=== PATIENT | female | born 1960 | race Caucasian/White ===

== ENCOUNTER 2020-10-31 20:20 | Inpatient (IN) | payer OTHER, SELFPAY ==
[2020-10-31] VITALS (22 sets, daily range): BP systolic 103–135; BP diastolic 62–94; PULSE 97–113; RESP 15–28; TEMP 37.4; O2SAT 86–99
--- NOTE | ~2020-10-31 | XR_ITS ---
EXAMINATION: XR chest 1V portable EXAM DATE: 11/07/2020 00:23 INDICATION: COVID, hypoxic respiratory failure TECHNIQUE: Portable AP frontal chest x-ray was obtained. Comparison is made to prior examination from 10/31/2019. FINDINGS: There is moderate amount of bilateral mid and lower lung zone acute airspace disease, may h ave slight progression on the left side compared to prior study. Likely COVID pneumonia given history provided. No pneumothorax or pleural effusion. Cardiomediastinal silhouette is normal. Right rotator cuff calci fic tendinosis. Possible cholecystectomy clips. Mild thoracic scoliosis and mild to moderate spondylo sis. IMPRESSION: 1. Bilateral acute airspace disease, probable slight progression on the left. Reviewed, dictated and finalized at location A. T DESK LEAD
--- NOTE | ~2020-10-31 | XR_ITS ---
EXAMINATION: XR chest 1V portable EXAM DATE: 11/08/2020 10:26 INDICATION: shortness of breath, COVID-19. TECHNIQUE: Portable AP frontal chest x-ray was obtained. Comparison is made to prior examination from 11/07/2020. FINDINGS: There is moderate amount of bilateral mid and lower lung zone acute airspace disease unchan ged. Likely COVID pneumonia given history provided. No pneumothorax or pleural effusion. Cardiomediastinal silhouette is normal. Right rotator cuff calci fic tendinosis. Possible cholecystectomy clips. Mild thoracic scoliosis and mild to moderate spondylo sis. IMPRESSION: Moderate amount of bilateral acute airspace disease unchanged. Reviewed, dictated and finalized at location A. ERAGE PURCHASE AND SALE CLERK
--- NOTE | ~2020-10-31 | US_ITS ---
EXAMINATION: US abdomen limited DATE: 11/03/2020 10:22 INDICATION: Abnormal liver function tests. TECHNIQUE: Multiple grayscale and Doppler ultrasound images of the abdomen were obtained. COMPARISON: Chest CT 10/31/2020 FINDINGS: The visualized portions of the head and body of the pancreas are normal. The liver is doroteo l without focal lesion. No liver surface nodularity. There is normal flow in main portal vein. The ga llbladder is absent. The common duct is normal and measures 5 mm. IMPRESSION: 1. Normal right upper quadrant ultrasound status post cholecystectomy. Reviewed, dictated and finalized at location A. P TRUCK DRIVER
--- NOTE | ~2020-10-31 | CT_ITS ---
EXAMINATION: CTA chest PE protocol DATE: 10/31/2020 23:57 INDICATION: Shortness of breath TECHNIQUE: Computed tomography angiography (CTA) of the chest was performed with 100 mL Omnipaque-350 intravenous contrast timed to evaluate the pulmonary arteries. Coronal maximum intensity projection 3D-reconstructions were created by the technologist. Automated exposure control and iterative reconst ruction technique were employed. Exam dose: 214.69 mGy-cm total exam DLP. COMPARISON: October 31, 2020 portable AP chest FINDINGS: There is diagnostic contrast enhancement of the pulmonary arteries and no evidence of pulmo nary embolism. No thoracic aortic aneurysm or dissection. Normal heart size. No pericardial or pleural effusion. There are extensive bilateral pulmonary infiltrates involving right upper, middle lobe is mildly more prominent involvement of the left upper lobe and lingula and particularly the dependent lower lobes. Findings are consistent with extensive bilateral pneumonia or aspiration pneumonitis. Normal morphology of the adrenal glands. Status post cholecystectomy. Diffuse hepatic steatosis. There are 2 up to 1.3 cm posterior right hepatic probable cysts. 4.5 mm upper pole nonobstructing left renal calculus. IMPRESSION: No evidence of pulmonary embolism Extensive bilateral pulmonary infiltrates; diffusion diagnosis includes bilateral pneumonia, aspirati on pneumonitis Status post cholecystectomy Diffuse hepatic steatosis Probable hepatic cysts 4.5 mm upper pole nonobstructing left renal calculus Reviewed, dictated and finalized at Location A. Reviewed, dictated and finalized at location A. TICS FABRICATOR OR WELDER IMPRESSION: No evidence of pulmonary embolism Extensive bilateral pulmonary infiltrates; diffusion diagnosis includes bilater al pneumonia, aspiration pneumonitis Status post cholecystectomy Diffuse hepatic steatosis Probable hepatic cysts 4.5 mm upper pole nonobstructing left renal calculus
--- NOTE | ~2020-10-31 | US_ITS ---
EXAMINATION: US venous doppler [facility] DATE: 11/01/2020 10:10 INDICATION: Shortness of breath. TECHNIQUE: Grayscale ultrasound images without and with compression and Doppler ultrasound images of the bilateral lower extremity veins were obtained. COMPARISON: Ultrasound 04/18/2017 FINDINGS: The visualized portions of right common femoral vein, profunda (deep) femoral vein, femoral vein, pop liteal vein, peroneal veins, posterior tibial veins, and greater saphenous vein outflow are patent. The visualized portions of left common femoral vein, profunda femoral vein, femoral vein, popliteal v ein, peroneal veins, posterior tibial veins, and greater saphenous vein outflow are patent. IMPRESSION: 1. No deep venous thrombosis. Reviewed, dictated and finalized at location A. GER TECHNICAL SALES
--- NOTE | ~2020-10-31 | XR_ITS ---
EXAMINATION: XR chest 1V portable DATE: 10/31/2020 20:54 INDICATION: Shortness of breath. Cough. TECHNIQUE: A single frontal view of the chest was obtained. COMPARISON: Chest 2 views 06/29/2015 FINDINGS: There are patchy airspace opacities in the mid and lower lung zones. No pleural effusion or pneumothorax. The heart size is normal. Surgical clips in the right upper quadrant are likely from c holecystectomy. IMPRESSION: 1. Patchy airspace opacities in the mid and lower lung zones, consistent with pneumonia. Reviewed, dictated and finalized at location A. MAKER IMPRESSION: 1. Patchy airspace opacities in the mid and lower lung zones, consistent with p neumonia.
--- NOTE | 2020-10-31 20:48 | ECG_ITS ---
Measurements Intervals [place] Rate: 103 P: 31 GA: 155 QRS: -5 QRSD: 77 T: 14 QT: 303 QTc: 398 Interpretive Statements SINUS TACHYCARDIA LOW QRS VOLTAGE IN PRECORDIAL LEADS BORDERLINE T WAVE ABNORMALITY- INFERIOR LEADS BASELINE ARTIFACT- I, II, III, AVL, AVF, V4 BORDERLINE ECG Electronically Signed On 11-01-2020 12:37:26 CLINICAL OB by Estevan Spears D.O.
[2020-10-31] MEDS: SODIUM CHLORIDE 0.9% IV 1,000 ML 999 ML IV CONT (21:10)
[2020-10-31 21:14] LABS: Hematocrit 42.2 % (37.0-47.0); Hemoglobin 15.3 g/dL (12.0-15.0); Immature Granulocyte Absolute 0.02 K/mm3 (0.00-0.031); Immature Granulocyte Percent A 0.6 % (0-0.5); Lymphocytes Absolute Auto 0.86 K/mm3 (0.9-3.2); Lymphocytes Percent Auto 27.6 % (18.3-44.2); Mean Corpuscular HGB Conc 36.3 g/dl (32-36); Mean Corpuscular Hemoglobin 29.7 pg (26-34); Mean Corpuscular Volume 81.8 fl (80-100); Mean Platelet Volume 9.3 fl (7.4-10.4); Monocytes Absolute Auto 0.1 K/mm3 (0.1-0.6); Monocytes Percent Auto 4.2 % (2.6-8.5); Neutrophils Absolute Auto 2.1 K/mm3 (1.3-6.7); Neutrophils Percent Auto 67.6 % (45.5-73.1); Platelet Count Result 225 k/mm3 (150-375); Red Blood Count 5.16 M/mm3 (4.2-5.4); Red Cell Distribution Width 11.4 % (11.5-14.5); White Blood Count 3.1 K/mm3 (4.5-10.0)
[2020-10-31 21:20] LABS: Hypochromasia 2+ (NORMAL); Platelet Estimate Adequate (Adequate)
[2020-10-31 21:24] LABS: Lactic Acid Reflex 1.5 mmol/L (0.7-2.1)
[2020-10-31 21:27] LABS: Alanine Aminotransferase 49 U/L (4-35); Albumin Level 3.6 g/dL (3.5-5.1); Alkaline Phosphatase 99 U/L (38-126); Anion Gap 7 mmol/L (8-16); Aspartate Amino Transferase 59 U/L (14-36); Bilirubin,Total 0.6 mg/dL (0.2-1.3); Blood Urea Nitrogen 9 mg/dL (7-17); CRP 6.7 mg/dL (<1.0); Calcium 8.4 mg/dL (8.4-10.2); Carbon Dioxide 31 mmol/L (22-30); Chloride 94 mmol/L (98-107); Estimated Glomerular Filt Rate > 60; Glucose 110 mg/dL (65-105); Potassium 3.3 mmol/L (3.4-5.0); Sodium 132 mmol/L (137-145)
[2020-10-31 21:33] LABS: NT Pro B Type Natriuretic Pept 29 PG/ML (5-100)
[2020-10-31] MEDS: DEXAMETHASONE SOD PHOS INJ 4 MG/ML VIAL 6 MG IV PUSH (21:37)
--- NOTE | 2020-10-31 22:10 | ED.GENADULT ---
HPI - General Adult General Chief complaint: Weakness Stated complaint: sick for 12 days Time Seen by Provider: 10/31/20 20:29 History of Present Illness HPI narrative: Patient is a 59-year-old female who presents to the ER with reports of weakness. Ongoing for 12 days. Associated with nonproductive cough shortness of breath. She also has been having persistent diarrhea but no nausea vomiting or abdominal pain. No known sick contacts. No known Covid contacts. Related Data Allergies Allergy/AdvReac Type Severity Reaction Status Date / Time chlordiazepoxide Allergy Unknown Verified 03/08/17 01:13 codeine Allergy Unknown Verified 02/01/12 12:33 erythromycin base Allergy Unknown Verified 02/01/12 12:33 metronidazole Allergy Unknown Verified 03/08/17 01:13 Penicillins Allergy Unknown Verified 02/01/12 12:26 Review of Systems Review of Systems: All systems reviewed & are unremarkable except as noted in HPI and below Constitutional: Constitutional: Reports chills, Reports fatigue, Reports fever(s) and Reports weakness ENT: Denies nasal congestion and Denies sore throat Cardiovascular: Cardiovascular: Denies chest pain, Denies rapid heart rate and Denies radiating jaw, neck or arm pain Respiratory: Respiratory: Reports cough, Reports dyspnea and Denies wheezing Gastrointestinal: Gastrointestinal: Denies abdominal pain, Reports diarrhea, Denies nausea and Denies vomiting PMFSH Past Medical History Medical History (Updated 10/31/20 @ 23:40 by Hank Jacobs MD) Healthy female adult Surgical History Surgical History (Updated 10/31/20 @ 23:38 by Hank Jacobs MD) History of cholecystectomy Family History Family History (Updated 05/01/14 @ 07:13 by DOCTOR UNKNOWN) Mother Hypertension Father Family history of hearing loss Other Diabetes mellitus Family history of cardiovascular disease Social History Social History Smoking status: Never smoker Exam Narrative: Exam Narrative: GENERAL: Fatigued-appearing, well-nourished, and in no acute distress. HEAD: Normocephalic, atraumatic. CHEST: Rales bilateral bases, no wheezing. No respiratory distress. HEART: Regular rate and rhythm. Normal peripheral pulses. ABDOMEN: Soft, nontender, nondistended. EXTREMITIES: Normal range of motion. No edema. SKIN: Warm, dry, no rash. NEURO: Alert and oriented x3. PSYCH: Normal mood and affect. Course Course Emergency Course: Patient informed results. Because she is a PUI she will be started on IV antibiotics for her pneumonia though is likely Covid. Patient has been given Decadron. Discussed with hospitalist service to request CTA to rule out PE. Vital Signs Vital signs: Vital Signs Temperature 99.4 F 10/31/20 20:30 Pulse Rate 110 H 10/31/20 20:30 Respiratory Rate 28 H 10/31/20 20:30 Blood Pressure 135/94 H 10/31/20 20:30 Pulse Oximetry 86 L 10/31/20 20:30 Temperature 99.4 F 10/31/20 20:30 Pulse Rate 100 10/31/20 23:31 Respiratory Rate 28 H 10/31/20 23:31 Blood Pressure 107/69 10/31/20 23:30 Pulse Oximetry 95 10/31/20 23:31 Medical Decision Making Vital Signs Vital Signs: Vital Signs Temperature 99.4 F 10/31/20 20:30 Pulse Rate 110 H 10/31/20 20:30 Respiratory Rate 28 H 10/31/20 20:30 Blood Pressure 135/94 H 10/31/20 20:30 Pulse Oximetry 86 L 10/31/20 20:30 Temperature 99.4 F 10/31/20 20:30 Pulse Rate 100 10/31/20 23:31 Respiratory Rate 28 H 10/31/20 23:31 Blood Pressure 107/69 10/31/20 23:30 Pulse Oximetry 95 10/31/20 23:31 Lab Data Result diagrams: 10/31/20 21:02 10/31/20 21:02 Labs: Lab Results 10/31/20 10/31/20 10/31/20 Range/Units 21:02 21:02 21:02 WBC 3.1 L (4.5-10.0) K/mm3 RBC 5.16 (4.2-5.4) M/mm3 Hgb 15.3 H (12.0-15.0) g/dL Hct 42.2 (37.0-47.0) % MCV 81.8 (80-100) fl MCH 29.7 (26-34) pg MCHC 36.3 H (32-36) g/dl RDW 11.4 L (11.5-
--- NOTE | 2020-10-31 23:37 | PM.IMHP ---
H&P: HPI History of Present Illness Date/Time: 10/31/20 23:37 Chief Complaint: Dyspnea Narrative: Elyse Eagle is a 59 year old female Who has been sick for at least 12 days. She lives with her who was also sick but he is getting better. The patient has had a cough, fever, chills, nausea, vomiting, diarrhea and body aches. The patient has taken Tylenol at home but has not helped. The patient feels like she is getting worse instead of better. She feels short of breath today. She is not aware being exposed to COVID but her has been sick and he has not been tested for COVID. Chest x-ray was read as patchy airspace opacities mid and lower lung, with pneumonia. The patient was placed on 1 L per nasal cannula of oxygen. She is not typically on oxygen at home. She does not smoke or have any Chronic respiratory diseases. white count is 3 point on. The patient stated that she has lost her sense of taste and has lost her appetite. She says nothing tastes good and has not been eating very much recently. She was given a L IV fluids in the emergency room. She was started on Levaquin. She was started on Decadron in the emergency room. Her blood pressure is on the low side 107/69. Respiratory rate is 28. the lowest pulse ox reading that was recorded from the emergency room was listed as 86%. Patient's D-dimer was 1.4. Potassium 3.3. Potassium supplement was ordered. CT a pulmonary was ordered as well due to the elevated D-dimer. Patient is being admitted to inpatient on the date of service of 10/31/2020. Review of Systems Review of Systems: All systems reviewed & are unremarkable except as noted in HPI and below Constitutional: Constitutional: Reports as per HPI and Reports no additional constitutional complaints Eyes: Eyes: Reports as per HPI and Reports no additional eye complaints ENT: Reports system reviewed and no additional complaints, except as documented and Reports Normal hearing present Cardiovascular: Cardiovascular: Reports no additional cardiovascular complaints Respiratory: Respiratory: Reports no additional respiratory complaints and Reports no additional respiratory complaints Gastrointestinal: Gastrointestinal: Reports as per HPI and Reports no additional gastrointestinal complaints Musculoskeletal: Musculoskeletal: Reports no additional musculoskeletal complaints Integumentary/Breasts: Skin/Breast: Reports system reviewed and no additional complaints, except as docu and Reports as per HPI Neurologic: Reports system reviewed and no additional complaints, except as documented, Reports as per HPI and Reports Normal hearing present Psychiatric: Psychiatric: Reports no additional psychiatric complaints and Reports as per HPI Endocrine: Endocrine: Reports no additional endocrine complaints Hematologic/Lymphatic: Hematologic/Lymphatic: Reports no additional hematologic/lymphatic complaints Allergic/Immunologic: Allergic/Immunologic: Reports no additional allergic/immunologic complaints [facility] Past Medical History Medical History (Updated 10/31/20 @ 23:50 by Ondina Mcelroy NP) Healthy female adult Surgical History Surgical History History of cholecystectomy Family History Family History (Updated 10/31/20 @ 23:53 by Ondina Mcelroy NP) Mother Hypertension COPD (chronic obstructive pulmonary disease) Father Family history of hearing loss Malignant neoplasm of prostate Other Diabetes mellitus Family history of cardiovascular disease Social History Social History (Updated 10/31/20 @ 23:54 by Ondina Mcelroy NP) Social History: 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 The patient desires to be a full code. She has 4 children. She is a lifelong nonsmoker. She does not use any marijuana alcohol or illicit drugs. Smoking status: Never smoker
[2020-11-01] VITALS (7 sets, daily range): BP systolic 102–111; BP diastolic 59–66; PULSE 88–114; RESP 16–20; TEMP 36–36.9; O2SAT 91–94; BMI 27.6
--- NOTE | 2020-11-01 00:49 | PC.NURSE ---
This patient, Elyse Eagle, was admitted to [facility] Surg Room 306-01. Patient/family oriented to hospital policies and general routines including ID bracelet, bed and alarms, visiting hours, pain management, procedures, bathroom and other care routines, personal items, smoking policy, room service/diet, and visiting hours. Information on how to activate the Rapid Response Team has been discussed. Patient/Family are encouraged to report perceived risks to care and to ask questions if they do not understand what they are told or what they should do.
[2020-11-01] MEDS: POTASSIUM CHLORIDE 20 MEQ PACKET (FOR LIQUID) PO (01:06)
[2020-11-01 09:17] LABS: Hematocrit 39.7 % (37.0-47.0); Hemoglobin 14.3 g/dL (12.0-15.0); Immature Granulocyte Absolute 0.01 K/mm3 (0.00-0.031); Immature Granulocyte Percent A 0.5 % (0-0.5); Lymphocytes Absolute Auto 0.53 K/mm3 (0.9-3.2); Lymphocytes Percent Auto 28.6 % (18.3-44.2); Mean Corpuscular Hemoglobin 29.7 pg (26-34); Mean Corpuscular Volume 82.4 fl (80-100); Mean Platelet Volume 9.1 fl (7.4-10.4); Monocytes Absolute Auto 0.1 K/mm3 (0.1-0.6); Monocytes Percent Auto 5.9 % (2.6-8.5); Neutrophils Absolute Auto 1.2 K/mm3 (1.3-6.7); Platelet Count Result 225 k/mm3 (150-375); Red Blood Count 4.82 M/mm3 (4.2-5.4); Red Cell Distribution Width 11.5 % (11.5-14.5)
[2020-11-01 09:19] LABS: White Blood Count 1.9 K/mm3 (4.5-10.0)
[2020-11-01] MEDS: ENOXAPARIN 40 MG/0.4 ML SYRINGE SUB-Q ×2 (10:07→20:59)
[2020-11-01] MEDS: DEXAMETHASONE SOD PHOS INJ 4 MG/ML VIAL 6 MG IV PUSH (10:07)
[2020-11-01 10:24] LABS: Alanine Aminotransferase 50 U/L (4-35); Albumin Level 3.3 g/dL (3.5-5.1); Alkaline Phosphatase 85 U/L (38-126); Anion Gap 3 mmol/L (8-16); Aspartate Amino Transferase 54 U/L (14-36); Bilirubin,Total 0.4 mg/dL (0.2-1.3); Blood Urea Nitrogen 8 mg/dL (7-17); CRP 6.7 mg/dL (<1.0); Calcium 8.6 mg/dL (8.4-10.2); Carbon Dioxide 31 mmol/L (22-30); Chloride 102 mmol/L (98-107); Estimated CRCL calculation 89 ml/min; Estimated Glomerular Filt Rate > 60; Glucose 132 mg/dL (65-105); Potassium 4.2 mmol/L (3.4-5.0); Sodium 136 mmol/L (137-145)
--- NOTE | 2020-11-01 14:24 | PM.IMPN ---
Progress Note: A&P Assessment and Plan (1) Person under investigation for COVID-19: Code(s): Z20.822 - Contact with and (suspected) exposure to COVID-19 Status: Acute Assessment and Plan: patient was started on Decadron. She was started on Levaquin as well for possibility of community-acquired pneumonia. Continue with inhaler. Incentive spirometer. CRP was elevated liver enzymes are elevated. D-dimer is elevated. 11/01/20 14:24 patient is a 59-year-old female presented to emergency department with a complaint of cough, shortness of breath and fever for last 1, patient states she has not been exposed to COVID-19 however she has lost her taste and has a poor appetite, patient has a similar symptoms, patient D-dimer is elevated, to further evaluate patient had a CTA of the chest which did not show pulmonary emboli lower extremity Dopplers are pending, CTA showed Extensive bilateral pulmonary infiltrates; diffusion diagnosis includes bilateral pneumonia, aspiration pneumonitis patient is being treated for community-acquired pneumonia, COVID test is pending, and was started on dexamethasone from ER, and Lovenox, patient remains clinically stable will continue to monitor patient and will follow-up on COVID test and further recommendation to follow. (2) Hypokalemia: Code(s): E87.6 - Hypokalemia Status: Acute Assessment and Plan: will replace as necessary (3) Elevated d-dimer: Code(s): R79.89 - Other specified abnormal findings of blood chemistry Status: Acute Assessment and Plan: CTA pulmonary and ordered venous Dopplers. Plan is above (4) Hypoxia: Code(s): R09.02 - Hypoxemia Status: Acute Assessment and Plan: Patient is on oxygen at 1 L per nasal cannula. (5) Pneumonia: Code(s): J18.9 - Pneumonia, unspecified organism Status: Acute Assessment and Plan: The patient was started on Levaquin and inhalers. Subjective Date/time seen: 11/01/20 14:24 patient is a 59-year-old female presented to emergency department with a complaint of cough, shortness of breath and fever for last 1, patient states she has not been exposed to COVID-19 however she has lost her taste and has a poor appetite, patient has a similar symptoms, patient D-dimer is elevated, to further evaluate patient had a CTA of the chest which did not show pulmonary emboli lower extremity Dopplers are pending, CTA showed Extensive bilateral pulmonary infiltrates; diffusion diagnosis includes bilateral pneumonia, aspiration pneumonitis patient is being treated for community-acquired pneumonia, COVID test is pending, and was started on dexamethasone from ER, and Lovenox, patient remains clinically stable will continue to monitor patient and will follow-up on COVID test and further recommendation to follow. Review of Systems Review of Systems: All systems reviewed & are unremarkable except as noted in HPI and below Exam Narrative: Exam Narrative: Patient is comfortable, NAD HEENT: eyes are clear and none icteric LUNGS: Normal respiratory effort ABD: Not distended Lower extremities: no edema SKIN: nonjaundiced Neuro: grossly intact normal speech. Objective Data Vital Signs Vital Signs: Vital Signs - 24 hr 10/31/20 20:30 10/31/20 21:12 10/31/20 21:15 Temperature 99.4 F Pulse Rate 110 H 101 H 104 H Respiratory Rate 28 H 20 22 H Blood Pressure 135/94 H 112/70 Pulse Oximetry 86 L 96 92 10/31/20 21:16 10/31/20 21:30 10/31/20 21:31 Temperature Pulse Rate 102 H 108 H 113 H Respiratory Rate 18 25 H 23 H Blood Pressure 119/73 Pulse Oximetry 93 93 91 10/31/20 21:45 10/31/20 21:46 10/31/20 22:00 Temperature Pulse Rate 111 H 106 H 101 H Respiratory Rate 26 H 22 H 22 H Blood Pressure 106/79 111/65 Pulse Oximetry 98 97 98 10/31/20 22:01 10/31/20 22:15 10/31/20 22:16 Temperature Pulse Rate 100 101 H 99 Respiratory Rate 15 27
[2020-11-01] MEDS: guaiFENesin/DEXTROMETHORPHAN 10 ML UDC PO (17:00)
[2020-11-02] VITALS (8 sets, daily range): BP systolic 96–114; BP diastolic 54–64; PULSE 77–95; RESP 16–18; TEMP 36.4–37.3; O2SAT 89–98
[2020-11-02 06:10] LABS: Hematocrit 39.1 % (37.0-47.0); Hemoglobin 13.7 g/dL (12.0-15.0); Immature Granulocyte Absolute 0.02 K/mm3 (0.00-0.031); Immature Granulocyte Percent A 0.4 % (0-0.5); Lymphocytes Absolute Auto 0.85 K/mm3 (0.9-3.2); Lymphocytes Percent Auto 16.5 % (18.3-44.2); Mean Corpuscular Hemoglobin 28.9 pg (26-34); Mean Corpuscular Volume 82.5 fl (80-100); Mean Platelet Volume 9.3 fl (7.4-10.4); Monocytes Absolute Auto 0.3 K/mm3 (0.1-0.6); Monocytes Percent Auto 5.4 % (2.6-8.5); Neutrophils Percent Auto 77.7 % (45.5-73.1); Platelet Count Result 253 k/mm3 (150-375); Red Blood Count 4.74 M/mm3 (4.2-5.4); Red Cell Distribution Width 11.4 % (11.5-14.5); White Blood Count 5.2 K/mm3 (4.5-10.0)
[2020-11-02 06:23] LABS: Alanine Aminotransferase 115 U/L (4-35); Albumin Level 3.2 g/dL (3.5-5.1); Alkaline Phosphatase 87 U/L (38-126); Anion Gap 3 mmol/L (8-16); Aspartate Amino Transferase 126 U/L (14-36); Bilirubin,Total 0.6 mg/dL (0.2-1.3); Blood Urea Nitrogen 11 mg/dL (7-17); Calcium 8.5 mg/dL (8.4-10.2); Carbon Dioxide 32 mmol/L (22-30); Chloride 102 mmol/L (98-107); Estimated CRCL calculation 89 ml/min; Estimated Glomerular Filt Rate > 60; Glucose 110 mg/dL (65-105); Magnesium 2.1 mg/dL (1.6-2.3); Potassium 3.8 mmol/L (3.4-5.0); Sodium 137 mmol/L (137-145)
[2020-11-02] MEDS: ENOXAPARIN 40 MG/0.4 ML SYRINGE SUB-Q (09:59)
[2020-11-02] MEDS: DEXAMETHASONE SOD PHOS INJ 4 MG/ML VIAL 6 MG IV PUSH (10:00)
--- NOTE | 2020-11-02 14:32 | PM.IMPN ---
Progress Note: A&P Assessment and Plan (1) Person under investigation for COVID-19: Code(s): Z20.822 - Contact with and (suspected) exposure to COVID-19 Status: Acute Assessment and Plan: 11/02/20 14:32 patient was started on Decadron. She was started on Levaquin as well for possibility of community-acquired pneumonia. Continue with inhaler. Incentive spirometer. CRP was elevated liver enzymes are elevated. D-dimer is elevated. 11/01/20 14:24 patient is a 59-year-old female presented to emergency department with a complaint of cough, shortness of breath and fever for last 1, patient states she has not been exposed to COVID-19 however she has lost her taste and has a poor appetite, patient has a similar symptoms, patient D-dimer is elevated, to further evaluate patient had a CTA of the chest which did not show pulmonary emboli lower extremity Dopplers are pending, CTA showed Extensive bilateral pulmonary infiltrates; diffusion diagnosis includes bilateral pneumonia, aspiration pneumonitis patient is being treated for community-acquired pneumonia, COVID test is pending, and was started on dexamethasone from ER, and Lovenox, patient remains clinically stable will continue to monitor patient and will follow-up on COVID test and further recommendation to follow. 11/02 lower extremity venous Doppler is negative for DVT, patient COVID test is pending, patient was started on dexamethasone 10/14 from ER, patient is treated community-acquired pneumonia with levofloxacin, clinically stable requiring on the 1 L of oxygen and had a low-grade fever, denies any cough shortness of breath fever or chills, will follow-up on COVID test and further recommendation to follow. (2) Hypokalemia: Code(s): E87.6 - Hypokalemia Status: Acute Assessment and Plan: will replace as necessary (3) Elevated d-dimer: Code(s): R79.89 - Other specified abnormal findings of blood chemistry Status: Acute Assessment and Plan: CTA pulmonary and ordered venous Dopplers. Plan is above (4) Hypoxia: Code(s): R09.02 - Hypoxemia Status: Acute Assessment and Plan: Patient is on oxygen at 1 L per nasal cannula. (5) Pneumonia: Code(s): J18.9 - Pneumonia, unspecified organism Status: Acute Assessment and Plan: The patient was started on Levaquin and inhalers. Subjective Date/time seen: 11/02/20 14:32 patient was started on Decadron. She was started on Levaquin as well for possibility of community-acquired pneumonia. Continue with inhaler. Incentive spirometer. CRP was elevated liver enzymes are elevated. D-dimer is elevated. 11/01/20 14:24 patient is a 59-year-old female presented to emergency department with a complaint of cough, shortness of breath and fever for last 1, patient states she has not been exposed to COVID-19 however she has lost her taste and has a poor appetite, patient has a similar symptoms, patient D-dimer is elevated, to further evaluate patient had a CTA of the chest which did not show pulmonary emboli lower extremity Dopplers are pending, CTA showed Extensive bilateral pulmonary infiltrates; diffusion diagnosis includes bilateral pneumonia, aspiration pneumonitis patient is being treated for community-acquired pneumonia, COVID test is pending, and was started on dexamethasone from ER, and Lovenox, patient remains clinically stable will continue to monitor patient and will follow-up on COVID test and further recommendation to follow. 11/02 lower extremity venous Doppler is negative for DVT, patient COVID test is pending, patient was started on dexamethasone 10/14 from ER, patient is treated community-acquired pneumonia with levofloxacin, clinically stable requiring on the 1 L of oxygen and had a low-grade fever, denies any cough shortness of breath fever or chills, will follow-up on COVID test and further recommendation to follow. Review of Syst
[2020-11-02 18:21] LABS: SARS-CoV-2 RNA PCR Positive
[2020-11-03] VITALS (13 sets, daily range): BP systolic 101–109; BP diastolic 56–64; PULSE 80–86; RESP 18–20; TEMP 36.3–37.4; O2SAT 90–98
[2020-11-03 06:16] LABS: Hematocrit 39.3 % (37.0-47.0); Hemoglobin 13.7 g/dL (12.0-15.0); Immature Granulocyte Absolute 0.02 K/mm3 (0.00-0.031); Immature Granulocyte Percent A 0.4 % (0-0.5); Lymphocytes Absolute Auto 0.97 K/mm3 (0.9-3.2); Lymphocytes Percent Auto 18.2 % (18.3-44.2); Mean Corpuscular HGB Conc 34.9 g/dl (32-36); Mean Corpuscular Hemoglobin 29.5 pg (26-34); Mean Corpuscular Volume 84.5 fl (80-100); Mean Platelet Volume 9.3 fl (7.4-10.4); Monocytes Absolute Auto 0.3 K/mm3 (0.1-0.6); Monocytes Percent Auto 6.2 % (2.6-8.5); Neutrophils Percent Auto 75.2 % (45.5-73.1); Platelet Count Result 270 k/mm3 (150-375); Red Blood Count 4.65 M/mm3 (4.2-5.4); Red Cell Distribution Width 11.8 % (11.5-14.5); White Blood Count 5.3 K/mm3 (4.5-10.0)
[2020-11-03 06:29] LABS: Alanine Aminotransferase 215 U/L (4-35); Albumin Level 3.1 g/dL (3.5-5.1); Alkaline Phosphatase 91 U/L (38-126); Anion Gap 6 mmol/L (8-16); Aspartate Amino Transferase 130 U/L (14-36); Bilirubin,Total 0.4 mg/dL (0.2-1.3); Blood Urea Nitrogen 12 mg/dL (7-17); Calcium 8.6 mg/dL (8.4-10.2); Carbon Dioxide 30 mmol/L (22-30); Chloride 101 mmol/L (98-107); Estimated CRCL calculation 89 ml/min; Estimated Glomerular Filt Rate > 60; Glucose 120 mg/dL (65-105); Magnesium 2.1 mg/dL (1.6-2.3); Potassium 3.7 mmol/L (3.4-5.0); Sodium 137 mmol/L (137-145)
[2020-11-03] MEDS: CHOLECALCIFEROL 1,000 UNITS TABLET 1000 UNITS PO (09:18)
[2020-11-03] MEDS: ZINC SULFATE 220 MG CAPSULE PO (09:18)
[2020-11-03] MEDS: ASCORBIC ACID 500 MG TABLET PO (09:18)
[2020-11-03] MEDS: DEXAMETHASONE SOD PHOS INJ 4 MG/ML VIAL 6 MG IV PUSH (09:19)
[2020-11-03] MEDS: REMDESIVIR 200 MG/NS 250 ML 200 MG/250 ML BAG 250 MG IVPB (09:20)
[2020-11-03 11:11] LABS: Hepatitis B Surface Antigen Negative (Negative)
[2020-11-03 11:17] LABS: HAV RESULT Negative (Negative); Hepatitis B Core IgM Result Negative (Negative)
[2020-11-03 11:29] LABS: Hepatitis C Virus Antibody Negative (Negative)
[2020-11-03] MEDS: ENOXAPARIN 40 MG/0.4 ML SYRINGE SUB-Q ×2 (14:07→21:59)
--- NOTE | 2020-11-03 14:48 | PM.IMPN ---
Progress Note: A&P Assessment and Plan (1) Person under investigation for COVID-19: Code(s): Z20.822 - Contact with and (suspected) exposure to COVID-19 Status: Acute Assessment and Plan: 11/03/20 14:48 patient was started on Decadron. She was started on Levaquin as well for possibility of community-acquired pneumonia. Continue with inhaler. Incentive spirometer. CRP was elevated liver enzymes are elevated. D-dimer is elevated. 11/01/20 14:24 patient is a 59-year-old female presented to emergency department with a complaint of cough, shortness of breath and fever for last 1, patient states she has not been exposed to COVID-19 however she has lost her taste and has a poor appetite, patient has a similar symptoms, patient D-dimer is elevated, to further evaluate patient had a CTA of the chest which did not show pulmonary emboli lower extremity Dopplers are pending, CTA showed Extensive bilateral pulmonary infiltrates; diffusion diagnosis includes bilateral pneumonia, aspiration pneumonitis patient is being treated for community-acquired pneumonia, COVID test is pending, and was started on dexamethasone from ER, and Lovenox, patient remains clinically stable will continue to monitor patient and will follow-up on COVID test and further recommendation to follow. 11/02 lower extremity venous Doppler is negative for DVT, patient COVID test is pending, patient was started on dexamethasone 2/10 from ER, patient is treated community-acquired pneumonia with levofloxacin, clinically stable requiring on the 1 L of oxygen and had a low-grade fever, denies any cough shortness of breath fever or chills, will follow-up on COVID test and further recommendation to follow. 11/03 patient is positive for COVID being treated with dexamethasone 3/10 will start today Remdesivir 09/08, vitamin D and C, Zinc, discussed with the patient regarding convalescent plasma, patient refused it. patient LFT are elevated but not close to 10x the normal, acute hepatitis panel is negative and liver US was normal, will monitor liver function daily, patient is refusing Lovenox I explained to the patient COVID patients are at high risk for blood clots. will continue to monitor, will have PT work with the patient and further recommendation to follow. (2) Hypokalemia: Code(s): E87.6 - Hypokalemia Status: Acute Assessment and Plan: will replace as necessary (3) Elevated d-dimer: Code(s): R79.89 - Other specified abnormal findings of blood chemistry Status: Acute Assessment and Plan: CTA pulmonary and ordered venous Dopplers. Plan is above (4) Hypoxia: Code(s): R09.02 - Hypoxemia Status: Acute Assessment and Plan: Patient is on oxygen at 1 L per nasal cannula. (5) Pneumonia: Code(s): J18.9 - Pneumonia, unspecified organism Status: Acute Assessment and Plan: The patient was started on Levaquin and inhalers. Subjective Date/time seen: 11/03/20 14:48 patient was started on Decadron. She was started on Levaquin as well for possibility of community-acquired pneumonia. Continue with inhaler. Incentive spirometer. CRP was elevated liver enzymes are elevated. D-dimer is elevated. 11/01/20 14:24 patient is a 59-year-old female presented to emergency department with a complaint of cough, shortness of breath and fever for last 1, patient states she has not been exposed to COVID-19 however she has lost her taste and has a poor appetite, patient has a similar symptoms, patient D-dimer is elevated, to further evaluate patient had a CTA of the chest which did not show pulmonary emboli lower extremity Dopplers are pending, CTA showed Extensive bilateral pulmonary infiltrates; diffusion diagnosis includes bilateral pneumonia, aspiration pneumonitis patient is being treated for community-acquired pneumonia, COVID test is pending, and was started on dexamethasone from ER, and Lovenox
[2020-11-04] VITALS (7 sets, daily range): BP systolic 99–120; BP diastolic 56–72; PULSE 75–86; RESP 16–20; TEMP 36.4–37.2; O2SAT 90–97
[2020-11-04 06:34] LABS: Basophils Percent Auto 0.2 % (0.2-1.2); Hematocrit 38.8 % (37.0-47.0); Hemoglobin 13.6 g/dL (12.0-15.0); Immature Granulocyte Absolute 0.03 K/mm3 (0.00-0.031); Immature Granulocyte Percent A 0.7 % (0-0.5); Lymphocytes Absolute Auto 1.13 K/mm3 (0.9-3.2); Mean Corpuscular HGB Conc 35.1 g/dl (32-36); Mean Corpuscular Hemoglobin 29.1 pg (26-34); Mean Corpuscular Volume 82.9 fl (80-100); Mean Platelet Volume 9.2 fl (7.4-10.4); Monocytes Absolute Auto 0.4 K/mm3 (0.1-0.6); Monocytes Percent Auto 8.8 % (2.6-8.5); Neutrophils Percent Auto 65.3 % (45.5-73.1); Platelet Count Result 300 k/mm3 (150-375); Red Blood Count 4.68 M/mm3 (4.2-5.4); Red Cell Distribution Width 11.5 % (11.5-14.5); White Blood Count 4.5 K/mm3 (4.5-10.0)
[2020-11-04 06:47] LABS: Alanine Aminotransferase 149 U/L (4-35); Albumin Level 2.9 g/dL (3.5-5.1); Alkaline Phosphatase 90 U/L (38-126); Anion Gap 1 mmol/L (8-16); Aspartate Amino Transferase 47 U/L (14-36); Bilirubin,Total 0.4 mg/dL (0.2-1.3); Blood Urea Nitrogen 12 mg/dL (7-17); Calcium 8.3 mg/dL (8.4-10.2); Carbon Dioxide 33 mmol/L (22-30); Chloride 103 mmol/L (98-107); Estimated CRCL calculation 89 ml/min; Estimated Glomerular Filt Rate > 60; Glucose 87 mg/dL (65-105); Potassium 3.6 mmol/L (3.4-5.0); Sodium 137 mmol/L (137-145)
[2020-11-04] MEDS: ZINC SULFATE 220 MG CAPSULE PO (09:33)
[2020-11-04] MEDS: ASCORBIC ACID 500 MG TABLET PO (09:33)
[2020-11-04] MEDS: ENOXAPARIN 40 MG/0.4 ML SYRINGE SUB-Q ×2 (09:34→21:58)
[2020-11-04] MEDS: DEXAMETHASONE SOD PHOS INJ 4 MG/ML VIAL 6 MG IV PUSH (09:34)
[2020-11-04] MEDS: REMDESIVIR 100 MG/NS 250 ML 100 MG/250 ML BAG 250 MG IVPB (09:37)
--- NOTE | 2020-11-04 11:24 | PM.IMPN ---
Progress Note: A&P Assessment and Plan (1) Person under investigation for COVID-19: Code(s): Z20.822 - Contact with and (suspected) exposure to COVID-19 Status: Acute Assessment and Plan: 11/04/20 11:24 patient was started on Decadron. She was started on Levaquin as well for possibility of community-acquired pneumonia. Continue with inhaler. Incentive spirometer. CRP was elevated liver enzymes are elevated. D-dimer is elevated. 11/01/20 14:24 patient is a 59-year-old female presented to emergency department with a complaint of cough, shortness of breath and fever for last 1, patient states she has not been exposed to COVID-19 however she has lost her taste and has a poor appetite, patient has a similar symptoms, patient D-dimer is elevated, to further evaluate patient had a CTA of the chest which did not show pulmonary emboli lower extremity Dopplers are pending, CTA showed Extensive bilateral pulmonary infiltrates; diffusion diagnosis includes bilateral pneumonia, aspiration pneumonitis patient is being treated for community-acquired pneumonia, COVID test is pending, and was started on dexamethasone from ER, and Lovenox, patient remains clinically stable will continue to monitor patient and will follow-up on COVID test and further recommendation to follow. 11/02 lower extremity venous Doppler is negative for DVT, patient COVID test is pending, patient was started on dexamethasone 2/10 from ER, patient is treated community-acquired pneumonia with levofloxacin, clinically stable requiring on the 1 L of oxygen and had a low-grade fever, denies any cough shortness of breath fever or chills, will follow-up on COVID test and further recommendation to follow. 11/03 patient is positive for COVID being treated with dexamethasone 3/10 will start today Remdesivir 09/08, vitamin D and C, Zinc, discussed with the patient regarding convalescent plasma, patient refused it. patient LFT are elevated but not close to 10x the normal, acute hepatitis panel is negative and liver US was normal, will monitor liver function daily, patient is refusing Lovenox I explained to the patient COVID patients are at high risk for blood clots. will continue to monitor, will have PT work with the patient and further recommendation to follow. 11/04 patient is positive for COVID being treated with dexamethasone 4/10 started Remdesivir on 11/03 today is 2/5, vitamin D and C, Zinc, discussed with the patient regarding convalescent plasma, patient refused it. patient LFT are elevated but not close to 10x the normal, acute hepatitis panel is negative and liver US was normal, today patient LFT are trending down, will monitor liver function daily, patient was refusing Lovenox on 11/03, I explained to the patient COVID patients are at high risk for blood clots. starting today she is taking Lovenox, discussed with patient once she completes her 5 day course of remdesivir and remains clinically stable, will discharge her, will continue to monitor, will have PT work with the patient and further recommendation to follow (2) Hypokalemia: Code(s): E87.6 - Hypokalemia Status: Acute Assessment and Plan: will replace as necessary (3) Elevated d-dimer: Code(s): R79.89 - Other specified abnormal findings of blood chemistry Status: Acute Assessment and Plan: CTA pulmonary and ordered venous Dopplers. Plan is above (4) Hypoxia: Code(s): R09.02 - Hypoxemia Status: Acute Assessment and Plan: Patient is on oxygen at 1 L per nasal cannula. (5) Pneumonia: Code(s): J18.9 - Pneumonia, unspecified organism Status: Acute Assessment and Plan: The patient was started on Levaquin and inhalers. Subjective Date/time seen: 11/04/20 11:24 patient was started on Decadron. She was started on Levaquin as well for possibility of community-acquired pneumonia. Continue with inhaler. Incentive spirometer
[2020-11-04] MEDS: CHOLECALCIFEROL 1,000 UNITS TABLET 1000 UNITS PO (11:27)
[2020-11-05] VITALS (10 sets, daily range): BP systolic 104–111; BP diastolic 59–70; PULSE 62–98; RESP 18–20; TEMP 36.2–37.2; O2SAT 87–93
[2020-11-05 06:56] LABS: Basophils Percent Auto 0.1 % (0.2-1.2); Hematocrit 39.3 % (37.0-47.0); Hemoglobin 13.9 g/dL (12.0-15.0); Immature Granulocyte Absolute 0.05 K/mm3 (0.00-0.031); Immature Granulocyte Percent A 0.7 % (0-0.5); Lymphocytes Absolute Auto 1.41 K/mm3 (0.9-3.2); Mean Corpuscular HGB Conc 35.4 g/dl (32-36); Mean Corpuscular Hemoglobin 29.8 pg (26-34); Mean Corpuscular Volume 84.3 fl (80-100); Mean Platelet Volume 9.2 fl (7.4-10.4); Monocytes Absolute Auto 0.6 K/mm3 (0.1-0.6); Monocytes Percent Auto 8.1 % (2.6-8.5); Neutrophils Absolute Auto 5.4 K/mm3 (1.3-6.7); Neutrophils Percent Auto 72.1 % (45.5-73.1); Platelet Count Result 320 k/mm3 (150-375); Red Blood Count 4.66 M/mm3 (4.2-5.4); Red Cell Distribution Width 11.7 % (11.5-14.5); White Blood Count 7.4 K/mm3 (4.5-10.0)
[2020-11-05 07:09] LABS: Alanine Aminotransferase 98 U/L (4-35); Albumin Level 2.8 g/dL (3.5-5.1); Alkaline Phosphatase 89 U/L (38-126); Anion Gap 4 mmol/L (8-16); Aspartate Amino Transferase 50 U/L (14-36); Bilirubin,Total 0.3 mg/dL (0.2-1.3); Blood Urea Nitrogen 13 mg/dL (7-17); Calcium 8.1 mg/dL (8.4-10.2); Carbon Dioxide 32 mmol/L (22-30); Chloride 102 mmol/L (98-107); Estimated CRCL calculation 89 ml/min; Estimated Glomerular Filt Rate > 60; Glucose 84 mg/dL (65-105); Potassium 3.4 mmol/L (3.4-5.0); Sodium 138 mmol/L (137-145)
[2020-11-05] MEDS: ENOXAPARIN 40 MG/0.4 ML SYRINGE SUB-Q ×2 (09:53→20:02)
[2020-11-05] MEDS: ASCORBIC ACID 500 MG TABLET PO (09:53)
[2020-11-05] MEDS: DEXAMETHASONE SOD PHOS INJ 4 MG/ML VIAL 6 MG IV PUSH (09:53)
[2020-11-05] MEDS: ZINC SULFATE 220 MG CAPSULE PO (09:53)
[2020-11-05] MEDS: CHOLECALCIFEROL 1,000 UNITS TABLET 1000 UNITS PO (09:53)
[2020-11-05] MEDS: POTASSIUM CHLORIDE 20 MEQ TABLET 40 MEQ PO (09:53)
[2020-11-05] MEDS: REMDESIVIR 100 MG/NS 250 ML 100 MG/250 ML BAG 250 MG IVPB (09:54)
[2020-11-05] MEDS: guaiFENesin/DEXTROMETHORPHAN 10 ML UDC PO (09:58)
--- NOTE | 2020-11-05 11:44 | PM.IMPN ---
Progress Note: A&P Assessment and Plan (1) Person under investigation for COVID-19: Code(s): Z20.822 - Contact with and (suspected) exposure to COVID-19 Status: Acute Assessment and Plan: 11/05/20 11:44 patient was started on Decadron. She was started on Levaquin as well for possibility of community-acquired pneumonia. Continue with inhaler. Incentive spirometer. CRP was elevated liver enzymes are elevated. D-dimer is elevated. 11/01/20 14:24 patient is a 59-year-old female presented to emergency department with a complaint of cough, shortness of breath and fever for last 1, patient states she has not been exposed to COVID-19 however she has lost her taste and has a poor appetite, patient has a similar symptoms, patient D-dimer is elevated, to further evaluate patient had a CTA of the chest which did not show pulmonary emboli lower extremity Dopplers are pending, CTA showed Extensive bilateral pulmonary infiltrates; diffusion diagnosis includes bilateral pneumonia, aspiration pneumonitis patient is being treated for community-acquired pneumonia, COVID test is pending, and was started on dexamethasone from ER, and Lovenox, patient remains clinically stable will continue to monitor patient and will follow-up on COVID test and further recommendation to follow. 11/02 lower extremity venous Doppler is negative for DVT, patient COVID test is pending, patient was started on dexamethasone 2/10 from ER, patient is treated community-acquired pneumonia with levofloxacin, clinically stable requiring on the 1 L of oxygen and had a low-grade fever, denies any cough shortness of breath fever or chills, will follow-up on COVID test and further recommendation to follow. 11/03 patient is positive for COVID being treated with dexamethasone 3/10 will start today Remdesivir 09/08, vitamin D and C, Zinc, discussed with the patient regarding convalescent plasma, patient refused it. patient LFT are elevated but not close to 10x the normal, acute hepatitis panel is negative and liver US was normal, will monitor liver function daily, patient is refusing Lovenox I explained to the patient COVID patients are at high risk for blood clots. will continue to monitor, will have PT work with the patient and further recommendation to follow. 11/04 patient is positive for COVID being treated with dexamethasone 4/10 started Remdesivir on 11/03 today is 2/5, vitamin D and C, Zinc, discussed with the patient regarding convalescent plasma, patient refused it. patient LFT are elevated but not close to 10x the normal, acute hepatitis panel is negative and liver US was normal, today patient LFT are trending down, will monitor liver function daily, patient was refusing Lovenox on 11/03, I explained to the patient COVID patients are at high risk for blood clots. starting today she is taking Lovenox, discussed with patient once she completes her 5 day course of remdesivir and remains clinically stable, will discharge her, will continue to monitor, will have PT work with the patient and further recommendation to follow. 11/05 patient was positive for COVID being treated with dexamethasone /10 started Remdesivir on 11/03 today is 3/5, vitamin D and C, Zinc, discussed with the patient regarding convalescent plasma, patient refused it. patient LFT were elevated but not close to 10x the normal, acute hepatitis panel was negative and liver US was normal, today patient LFT are trending down, will monitor liver function daily, patient was refusing Lovenox on 11/03, I explained to the patient COVID patients are at high risk for blood clots. starting today she is taking Lovenox, discussed with patient once she completes her 5 day course of remdesivir and remains clinically stable, will discharge her, will continue to monitor, will have PT work with the patient and further recommendation to follow. (2) Hypokalemia: Code(s): E87.6 - Hypokalemia Status: Acute Asse
[2020-11-05] MEDS: guaiFENesin 12 HR 600 MG TABCR PO (20:02)
[2020-11-06] VITALS (10 sets, daily range): BP systolic 100–108; BP diastolic 61–71; PULSE 73–89; RESP 18–20; TEMP 35.8–37.3; O2SAT 89–94
[2020-11-06 06:23] LABS: Basophils Percent Auto 0.1 % (0.2-1.2); Hemoglobin 13.6 g/dL (12.0-15.0); Immature Granulocyte Absolute 0.07 K/mm3 (0.00-0.031); Immature Granulocyte Percent A 0.9 % (0-0.5); Lymphocytes Absolute Auto 1.54 K/mm3 (0.9-3.2); Lymphocytes Percent Auto 19.2 % (18.3-44.2); Mean Corpuscular HGB Conc 34.9 g/dl (32-36); Mean Corpuscular Hemoglobin 28.8 pg (26-34); Mean Corpuscular Volume 82.6 fl (80-100); Monocytes Absolute Auto 0.6 K/mm3 (0.1-0.6); Neutrophils Absolute Auto 5.8 K/mm3 (1.3-6.7); Neutrophils Percent Auto 71.8 % (45.5-73.1); Platelet Count Result 345 k/mm3 (150-375); Red Blood Count 4.72 M/mm3 (4.2-5.4); Red Cell Distribution Width 11.5 % (11.5-14.5)
[2020-11-06 06:45] LABS: Alanine Aminotransferase 76 U/L (4-35); Albumin Level 2.7 g/dL (3.5-5.1); Alkaline Phosphatase 95 U/L (38-126); Anion Gap 1 mmol/L (8-16); Aspartate Amino Transferase 31 U/L (14-36); Bilirubin,Total 0.5 mg/dL (0.2-1.3); Blood Urea Nitrogen 11 mg/dL (7-17); Calcium 8.4 mg/dL (8.4-10.2); Carbon Dioxide 30 mmol/L (22-30); Chloride 105 mmol/L (98-107); Estimated CRCL calculation 105 ml/min; Estimated Glomerular Filt Rate > 60; Glucose 90 mg/dL (65-105); Magnesium 1.9 mg/dL (1.6-2.3); Potassium 3.9 mmol/L (3.4-5.0); Sodium 136 mmol/L (137-145)
[2020-11-06] MEDS: ENOXAPARIN 40 MG/0.4 ML SYRINGE SUB-Q ×2 (07:59→20:31)
[2020-11-06] MEDS: guaiFENesin 12 HR 600 MG TABCR PO (07:59)
[2020-11-06] MEDS: ASCORBIC ACID 500 MG TABLET PO (07:59)
[2020-11-06] MEDS: CHOLECALCIFEROL 1,000 UNITS TABLET 1000 UNITS PO (07:59)
[2020-11-06] MEDS: DEXAMETHASONE SOD PHOS INJ 4 MG/ML VIAL 6 MG IV PUSH (07:59)
[2020-11-06] MEDS: ZINC SULFATE 220 MG CAPSULE PO (07:59)
[2020-11-06] MEDS: REMDESIVIR 100 MG/NS 250 ML 100 MG/250 ML BAG 250 MG IVPB (11:09)
--- NOTE | 2020-11-06 13:38 | PM.IMPN ---
Progress Note: A&P Assessment and Plan (1) Person under investigation for COVID-19: Code(s): Z20.822 - Contact with and (suspected) exposure to COVID-19 Status: Acute Assessment and Plan: 11/06/20 11:44 patient was started on Decadron. She was started on Levaquin as well for possibility of community-acquired pneumonia. Continue with inhaler. Incentive spirometer. CRP was elevated liver enzymes are elevated. D-dimer is elevated. 11/01/20 14:24 patient is a 59-year-old female presented to emergency department with a complaint of cough, shortness of breath and fever for last 1, patient states she has not been exposed to COVID-19 however she has lost her taste and has a poor appetite, patient has a similar symptoms, patient D-dimer is elevated, to further evaluate patient had a CTA of the chest which did not show pulmonary emboli lower extremity Dopplers are pending, CTA showed Extensive bilateral pulmonary infiltrates; diffusion diagnosis includes bilateral pneumonia, aspiration pneumonitis patient is being treated for community-acquired pneumonia, COVID test is pending, and was started on dexamethasone from ER, and Lovenox, patient remains clinically stable will continue to monitor patient and will follow-up on COVID test and further recommendation to follow. 11/02 lower extremity venous Doppler is negative for DVT, patient COVID test is pending, patient was started on dexamethasone 2/10 from ER, patient is treated community-acquired pneumonia with levofloxacin, clinically stable requiring on the 1 L of oxygen and had a low-grade fever, denies any cough shortness of breath fever or chills, will follow-up on COVID test and further recommendation to follow. 11/03 patient is positive for COVID being treated with dexamethasone 3/10 will start today Remdesivir 09/08, vitamin D and C, Zinc, discussed with the patient regarding convalescent plasma, patient refused it. patient LFT are elevated but not close to 10x the normal, acute hepatitis panel is negative and liver US was normal, will monitor liver function daily, patient is refusing Lovenox I explained to the patient COVID patients are at high risk for blood clots. will continue to monitor, will have PT work with the patient and further recommendation to follow. 11/04 patient is positive for COVID being treated with dexamethasone 4/10 started Remdesivir on 11/03 today is 2/5, vitamin D and C, Zinc, discussed with the patient regarding convalescent plasma, patient refused it. patient LFT are elevated but not close to 10x the normal, acute hepatitis panel is negative and liver US was normal, today patient LFT are trending down, will monitor liver function daily, patient was refusing Lovenox on 11/03, I explained to the patient COVID patients are at high risk for blood clots. starting today she is taking Lovenox, discussed with patient once she completes her 5 day course of remdesivir and remains clinically stable, will discharge her, will continue to monitor, will have PT work with the patient and further recommendation to follow. 11/05 patient was positive for COVID being treated with dexamethasone 10 started Remdesivir on 11/03 today is 3/5, vitamin D and C, Zinc, discussed with the patient regarding convalescent plasma, patient refused it. patient LFT were elevated but not close to 10x the normal, acute hepatitis panel was negative and liver US was normal, today patient LFT are trending down, will monitor liver function daily, patient was refusing Lovenox on 11/03, I explained to the patient COVID patients are at high risk for blood clots. starting today she is taking Lovenox, discussed with patient once she completes her 5 day course of remdesivir and remains clinically stable, will discharge her, will continue to monitor, will have PT work with the patient and further recommendation to follow. 11/06 patient was positive for COVID being treated with dexamethasone 6/10 started Remd
[2020-11-07] VITALS (10 sets, daily range): BP systolic 98–103; BP diastolic 52–71; PULSE 68–120; RESP 20; TEMP 35.8–37.1; O2SAT 89–95
[2020-11-07 06:35] LABS: Alanine Aminotransferase 70 U/L (4-35); Albumin Level 2.8 g/dL (3.5-5.1); Alkaline Phosphatase 92 U/L (38-126); Anion Gap 3 mmol/L (8-16); Aspartate Amino Transferase 34 U/L (14-36); Bilirubin,Total 0.4 mg/dL (0.2-1.3); Blood Urea Nitrogen 13 mg/dL (7-17); Calcium 8.5 mg/dL (8.4-10.2); Carbon Dioxide 31 mmol/L (22-30); Chloride 101 mmol/L (98-107); Estimated CRCL calculation 89 ml/min; Estimated Glomerular Filt Rate > 60; Glucose 91 mg/dL (65-105); Magnesium 1.8 mg/dL (1.6-2.3); Potassium 3.9 mmol/L (3.4-5.0); Sodium 135 mmol/L (137-145)
[2020-11-07 06:48] LABS: Basophils Percent Auto 0.3 % (0.2-1.2); Eosinophils Percent Auto 0.3 % (0-4.4); Hematocrit 41.2 % (37.0-47.0); Hemoglobin 14.4 g/dL (12.0-15.0); Immature Granulocyte Percent A 1.3 % (0-0.5); Lymphocytes Absolute Auto 1.66 K/mm3 (0.9-3.2); Lymphocytes Percent Auto 20.9 % (18.3-44.2); Mean Corpuscular Hemoglobin 29.5 pg (26-34); Mean Corpuscular Volume 84.4 fl (80-100); Mean Platelet Volume 9.1 fl (7.4-10.4); Monocytes Absolute Auto 0.8 K/mm3 (0.1-0.6); Monocytes Percent Auto 9.8 % (2.6-8.5); Neutrophils Absolute Auto 5.4 K/mm3 (1.3-6.7); Neutrophils Percent Auto 67.4 % (45.5-73.1); Platelet Count Result 357 k/mm3 (150-375); Red Blood Count 4.88 M/mm3 (4.2-5.4); Red Cell Distribution Width 11.9 % (11.5-14.5); White Blood Count 7.9 K/mm3 (4.5-10.0)
[2020-11-07] MEDS: ENOXAPARIN 40 MG/0.4 ML SYRINGE SUB-Q ×2 (09:30→21:38)
[2020-11-07] MEDS: CHOLECALCIFEROL 1,000 UNITS TABLET 1000 UNITS PO (09:30)
[2020-11-07] MEDS: ZINC SULFATE 220 MG CAPSULE PO (09:30)
[2020-11-07] MEDS: ASCORBIC ACID 500 MG TABLET PO (09:30)
--- NOTE | 2020-11-07 10:25 | PM.IMPN ---
Progress Note: A&P Assessment and Plan (1) Person under investigation for COVID-19: Code(s): Z20.822 - Contact with and (suspected) exposure to COVID-19 Status: Acute Assessment and Plan: 11/07/20 10:25 11/01/20 14:24 patient is a 59-year-old female presented to emergency department with a complaint of cough, shortness of breath and fever for last 1, patient states she has not been exposed to COVID-19 however she has lost her taste and has a poor appetite, patient has a similar symptoms, patient D-dimer is elevated, to further evaluate patient had a CTA of the chest which did not show pulmonary emboli lower extremity Dopplers are pending, CTA showed Extensive bilateral pulmonary infiltrates; diffusion diagnosis includes bilateral pneumonia, aspiration pneumonitis patient is being treated for community-acquired pneumonia, COVID test is pending, and was started on dexamethasone from ER, and Lovenox, patient remains clinically stable will continue to monitor patient and will follow-up on COVID test and further recommendation to follow. 11/02 lower extremity venous Doppler is negative for DVT, patient COVID test is pending, patient was started on dexamethasone 2/10 from ER, patient is treated community-acquired pneumonia with levofloxacin, clinically stable requiring on the 1 L of oxygen and had a low-grade fever, denies any cough shortness of breath fever or chills, will follow-up on COVID test and further recommendation to follow. 11/03 patient is positive for COVID being treated with dexamethasone 3/10 will start today Remdesivir 1/5, vitamin D and C, Zinc, discussed with the patient regarding convalescent plasma, patient refused it. patient LFT are elevated but not close to 10x the normal, acute hepatitis panel is negative and liver US was normal, will monitor liver function daily, patient is refusing Lovenox I explained to the patient COVID patients are at high risk for blood clots. will continue to monitor, will have PT work with the patient and further recommendation to follow. 11/04 patient is positive for COVID being treated with dexamethasone 4/10 started Remdesivir on 11/03 today is 2/5, vitamin D and C, Zinc, discussed with the patient regarding convalescent plasma, patient refused it. patient LFT are elevated but not close to 10x the normal, acute hepatitis panel is negative and liver US was normal, today patient LFT are trending down, will monitor liver function daily, patient was refusing Lovenox on 11/03, I explained to the patient COVID patients are at high risk for blood clots. starting today she is taking Lovenox, discussed with patient once she completes her 5 day course of remdesivir and remains clinically stable, will discharge her, will continue to monitor, will have PT work with the patient and further recommendation to follow. 11/05 patient was positive for COVID being treated with dexamethasone 5/10 started Remdesivir on 11/03 today is 3/5, vitamin D and C, Zinc, discussed with the patient regarding convalescent plasma, patient refused it. patient LFT were elevated but not close to 10x the normal, acute hepatitis panel was negative and liver US was normal, today patient LFT are trending down, will monitor liver function daily, patient was refusing Lovenox on 11/03, I explained to the patient COVID patients are at high risk for blood clots. starting today she is taking Lovenox, discussed with patient once she completes her 5 day course of remdesivir and remains clinically stable, will discharge her, will continue to monitor, will have PT work with the patient and further recommendation to follow. 11/06 patient was positive for COVID being treated with dexamethasone 6/10 started Remdesivir on 11/03 today is 4/5, vitamin D and C, Zinc, discussed with the patient regarding convalescent plasma, patient refused it. patient LFT were elevated but not close to 10x the normal, acute hepatitis panel was negative and liver U
[2020-11-07] MEDS: REMDESIVIR 100 MG/NS 250 ML 100 MG/250 ML BAG 250 MG IVPB (11:25)
[2020-11-07] MEDS: DEXAMETHASONE SOD PHOS INJ 4 MG/ML VIAL 6 MG IV PUSH (11:26)
[2020-11-08] VITALS (21 sets, daily range): BP systolic 99–108; BP diastolic 64–67; PULSE 63–111; RESP 18–20; TEMP 35.9–36.6; O2SAT 80–98
[2020-11-08 06:05] LABS: Basophils Absolute Auto 0.1 K/mm3 (0.0-0.1); Basophils Percent Auto 0.9 % (0.2-1.2); Eosinophils Percent Auto 0.2 % (0-4.4); Hematocrit 42.3 % (37.0-47.0); Hemoglobin 14.1 g/dL (12.0-15.0); Immature Granulocyte Absolute 0.12 K/mm3 (0.00-0.031); Immature Granulocyte Percent A 2.2 % (0-0.5); Lymphocytes Absolute Auto 0.95 K/mm3 (0.9-3.2); Lymphocytes Percent Auto 17.4 % (18.3-44.2); Mean Corpuscular HGB Conc 33.3 g/dl (32-36); Mean Corpuscular Hemoglobin 29.5 pg (26-34); Mean Corpuscular Volume 88.5 fl (80-100); Mean Platelet Volume 9.3 fl (7.4-10.4); Monocytes Absolute Auto 0.5 K/mm3 (0.1-0.6); Monocytes Percent Auto 9.5 % (2.6-8.5); Neutrophils Absolute Auto 3.8 K/mm3 (1.3-6.7); Neutrophils Percent Auto 69.8 % (45.5-73.1); Platelet Count Result 372 k/mm3 (150-375); Red Blood Count 4.78 M/mm3 (4.2-5.4); Red Cell Distribution Width 12.1 % (11.5-14.5); White Blood Count 5.5 K/mm3 (4.5-10.0)
[2020-11-08 06:24] LABS: Alanine Aminotransferase 55 U/L (4-35); Albumin Level 2.8 g/dL (3.5-5.1); Alkaline Phosphatase 94 U/L (38-126); Anion Gap 0 mmol/L (8-16); Aspartate Amino Transferase 26 U/L (14-36); Bilirubin,Total 0.3 mg/dL (0.2-1.3); Blood Urea Nitrogen 15 mg/dL (7-17); Calcium 8.7 mg/dL (8.4-10.2); Carbon Dioxide 32 mmol/L (22-30); Chloride 103 mmol/L (98-107); Estimated CRCL calculation 105 ml/min; Estimated Glomerular Filt Rate > 60; Glucose 107 mg/dL (65-105); Magnesium 1.9 mg/dL (1.6-2.3); Potassium 4.1 mmol/L (3.4-5.0); Sodium 135 mmol/L (137-145)
[2020-11-08] MEDS: DEXAMETHASONE SOD PHOS INJ 4 MG/ML VIAL 6 MG IV PUSH (09:31)
[2020-11-08] MEDS: guaiFENesin/DEXTROMETHORPHAN 10 ML UDC PO (09:31)
[2020-11-08] MEDS: ASCORBIC ACID 500 MG TABLET PO (09:32)
[2020-11-08] MEDS: ENOXAPARIN 40 MG/0.4 ML SYRINGE SUB-Q ×2 (09:32→21:10)
[2020-11-08] MEDS: REMDESIVIR 100 MG/NS 250 ML 100 MG/250 ML BAG 250 MG IVPB (09:32)
[2020-11-08] MEDS: CHOLECALCIFEROL 1,000 UNITS TABLET 1000 UNITS PO (09:32)
[2020-11-08] MEDS: ZINC SULFATE 220 MG CAPSULE PO (09:32)
[2020-11-08] MEDS: FUROSEMIDE INJ 40 MG/4 ML VIAL IV PUSH (09:50)
[2020-11-08 10:44] LABS: NT Pro B Type Natriuretic Pept 44 PG/ML (5-100)
--- NOTE | 2020-11-08 11:08 | PC.NURSE ---
RN to patient room for daily assessment/[address]. Found pt with HFNC in her hand as she was bathing. Informed pt of the importance of the nasal cannula prongs to be in the nares. Pt states she knows. She did not place it back in. I told pt to put her cannula back in. She stated she wanted to continue bathing. I let her know that would be fine, as long as she replaced the cannula. Dr. Gilbert into room. Pt states she wants to go home. Dr. Gilbert told pt she is on a high flow oxygen, and that right now, she needs to continue IV antiviral and antibiotic. Pt displeased, refusing mucinex. Checked pt 02 to possibly wean. 02 sat only 85 on 7L HFNC. Bumped to 10, pt continues to sat mid 80s, bumped to 12L. Educated pt on breathing in nose and blowing out mouth. Pt states she is a mouth breather. Offered to get pt a NRB, pt declines as she doesn't want a big thing on her face. Pt 02 sat at 87, bumped to 15 HFNC. Pt unhappy and wants to remove the prongs out of her nose. Again, discussed the importance of the oxygen. Offered to get pt saline gel/spray. Pt declined, does not want things up her nose. Discovered her 02 not reading on the nurses' station monitor because it had been unplugged. She stated she doesnt like it plugged in. Educated pt of importance of monitoring her 02. After 20 minutes, pt 02 reading 98. Returned to room, 02 to 10L with 02 sat 89-94. 20 minutes later, pt 02 sat continues to be 89-96; turned pt 02 to 9 L. IV lasix given, duoneb given, pt returned to bed, wires/tubings untangled. Pt instructed to call RN or EYELET OPERATOR for anything she needs. Will continue to monitor 02 and wean as tolerated. informed of initial increase to 15LHFNC and subsequent return to 10LHFNC.
--- NOTE | 2020-11-08 11:09 | P.PNIM_ITS ---
Progress Note: A&P Assessment and Plan (1) Person under investigation for COVID-19: Code(s): Z20.822 - Contact with and (suspected) exposure to COVID-19 Status: Acute Assessment and Plan: 11/08/20 11:09 11/01/20 14:24 patient is a 59-year-old female presented to emergency department with a complaint of cough, shortness of breath and fever for last 1, patient states she has not been exposed to COVID-19 however she has lost her taste and has a poor appetite, patient has a similar symptoms, patient D-dimer is elevated, to further evaluate patient had a CTA of the chest which did not show pulmonary emboli lower extremity Dopplers are pending, CTA showed Extensive bilateral pulmonary infiltrates; diffusion diagnosis includes bilateral pneumonia, aspiration pneumonitis patient is being treated for community-acquired pneumonia, COVID test is pending, and was started on dexamethasone from ER, and Lovenox, patient remains clinically stable will continue to monitor patient and will follow-up on COVID test and further recommendation to follow. 11/02 lower extremity venous Doppler is negative for DVT, patient COVID test is pending, patient was started on dexamethasone 2/10 from ER, patient is treated community-acquired pneumonia with levofloxacin, clinically stable requiring on the 1 L of oxygen and had a low-grade fever, denies any cough shortness of breath fever or chills, will follow-up on COVID test and further recommendation to follow. 11/03 patient is positive for COVID being treated with dexamethasone 3/10 will start today Remdesivir 1/5, vitamin D and C, Zinc, discussed with the patient regarding convalescent plasma, patient refused it. patient LFT are elevated but not close to 10x the normal, acute hepatitis panel is negative and liver US was normal, will monitor liver function daily, patient is refusing Lovenox I explained to the patient COVID patients are at high risk for blood clots. will continue to monitor, will have PT work with the patient and further re commendation to follow. 11/04 patient is positive for COVID being treated with dexamethasone 4/10 started Remdesivir on 11/03 today is 2/5, vitamin D and C, Zinc, discussed with the patient regarding convalescent plasma, patient refused it. patient LFT are elevated but not close to 10x the normal, acute hepatitis panel is negative and liver US was normal, today patient LFT are trending down, will monitor liver function daily, patient was refusing Lovenox on 11/03, I explained to the patient COVID patients are at high risk for blood clots. starting today she is taking Lovenox, discussed with patient once she completes her 5 day course of remdesivir and remains clinically stable, will discharge her, will continue to monitor, will have PT work with the patient and further recommendation to follow. 11/05 patient was positive for COVID being treated with dexamethasone 5/10 started Remdesivir on 11/03 today is /, vitamin D and C, Zinc, discussed with the patient regarding convalescent plasma, patient refused it. patient LFT were elevated but not close to 10x the normal, acute hepatitis panel was negative and liver US was normal, today patient LFT are trending down, will monitor liver function daily, patient was refusing Lovenox on 11/03, I explained to the patient COVID patients are at high risk for blood clots. starting today she is taking Lovenox, discussed with patient once she completes her 5 day course of remdesivir and remains clinically stable, will discharge her, will continue to monitor, will have PT work with the patient and further recommendation to follow. 11/06 patient was positive for COVID being treated with dexamethasone 6/10 started Remdesivir on 11/03 tod
[2020-11-08] MEDS: IPRATROPIUM BR 0.02% INH SOLN 0.5 MG/2.5 ML VIAL INHALATION ×3 (12:12→19:58)
[2020-11-08] MEDS: ALBUTEROL SULFATE NEB 2.5 MG/0.5 ML INH INHALATION ×3 (12:12→19:58)
[2020-11-09] VITALS (20 sets, daily range): BP systolic 100–115; BP diastolic 56–68; PULSE 70–133; RESP 16–20; TEMP 36.2–36.6; O2SAT 92–97
[2020-11-09] MEDS: ALBUTEROL SULFATE NEB 2.5 MG/0.5 ML INH INHALATION ×5 (00:01→22:51)
[2020-11-09] MEDS: IPRATROPIUM BR 0.02% INH SOLN 0.5 MG/2.5 ML VIAL INHALATION ×5 (00:01→22:51)
[2020-11-09 06:13] LABS: Alanine Aminotransferase 43 U/L (4-35); Albumin Level 2.9 g/dL (3.5-5.1); Alkaline Phosphatase 89 U/L (38-126); Anion Gap 3 mmol/L (8-16); Aspartate Amino Transferase 21 U/L (14-36); Bilirubin,Total 0.3 mg/dL (0.2-1.3); Blood Urea Nitrogen 16 mg/dL (7-17); CRP 3.7 mg/dL (<1.0); Calcium 8.7 mg/dL (8.4-10.2); Carbon Dioxide 32 mmol/L (22-30); Chloride 99 mmol/L (98-107); Estimated CRCL calculation 89 ml/min; Estimated Glomerular Filt Rate > 60; Glucose 108 mg/dL (65-105); Magnesium 1.8 mg/dL (1.6-2.3); Potassium 3.8 mmol/L (3.4-5.0); Sodium 134 mmol/L (137-145)
[2020-11-09 06:44] LABS: Basophils Percent Auto 0.2 % (0.2-1.2); Hematocrit 40.3 % (37.0-47.0); Immature Granulocyte Absolute 0.15 K/mm3 (0.00-0.031); Immature Granulocyte Percent A 2.3 % (0-0.5); Lymphocytes Absolute Auto 1.09 K/mm3 (0.9-3.2); Lymphocytes Percent Auto 16.7 % (18.3-44.2); Mean Corpuscular HGB Conc 34.7 g/dl (32-36); Mean Corpuscular Hemoglobin 29.5 pg (26-34); Mean Platelet Volume 9.3 fl (7.4-10.4); Monocytes Absolute Auto 0.6 K/mm3 (0.1-0.6); Monocytes Percent Auto 9.3 % (2.6-8.5); Neutrophils Absolute Auto 4.7 K/mm3 (1.3-6.7); Neutrophils Percent Auto 71.5 % (45.5-73.1); Platelet Count Result 418 k/mm3 (150-375); Red Blood Count 4.74 M/mm3 (4.2-5.4); Red Cell Distribution Width 11.9 % (11.5-14.5); White Blood Count 6.5 K/mm3 (4.5-10.0)
[2020-11-09] MEDS: DEXAMETHASONE SOD PHOS INJ 4 MG/ML VIAL 6 MG IV PUSH (09:25)
[2020-11-09] MEDS: ASCORBIC ACID 500 MG TABLET PO (09:26)
[2020-11-09] MEDS: ZINC SULFATE 220 MG CAPSULE PO (09:26)
[2020-11-09] MEDS: CHOLECALCIFEROL 1,000 UNITS TABLET 1000 UNITS PO (09:27)
[2020-11-09] MEDS: ENOXAPARIN 40 MG/0.4 ML SYRINGE SUB-Q ×2 (09:27→20:38)
[2020-11-09] MEDS: REMDESIVIR 100 MG/NS 250 ML 100 MG/250 ML BAG 250 MG IVPB (09:46)
--- NOTE | 2020-11-09 11:03 | PCNWS ---
Weekly nutritional screen. Patient is tolerating current diet with adequate intake. No nutritional needs at this time.
--- NOTE | 2020-11-09 14:52 | PCPTNOTE ---
Patient progressing well, decreasing PT frequency to 2-3x/week secondary to decreased need with gait and transfers.
--- NOTE | 2020-11-09 17:20 | PCRCNOTE ---
Window of time for administration has passed. See next scheduled administration.
[2020-11-09] MEDS: BENZONATATE 100 MG CAPSULE 200 MG PO (20:38)
[2020-11-10] VITALS (18 sets, daily range): BP systolic 104–111; BP diastolic 62–72; PULSE 74–116; RESP 18–20; TEMP 36.2–36.8; O2SAT 92–96
[2020-11-10] MEDS: IPRATROPIUM BR 0.02% INH SOLN 0.5 MG/2.5 ML VIAL INHALATION ×5 (04:19→20:04)
[2020-11-10] MEDS: ALBUTEROL SULFATE NEB 2.5 MG/0.5 ML INH INHALATION ×5 (04:19→20:04)
[2020-11-10 05:49] LABS: Basophils Percent Auto 0.3 % (0.2-1.2); Eosinophils Percent Auto 0.1 % (0-4.4); Hematocrit 39.8 % (37.0-47.0); Hemoglobin 13.9 g/dL (12.0-15.0); Immature Granulocyte Absolute 0.17 K/mm3 (0.00-0.031); Immature Granulocyte Percent A 2.4 % (0-0.5); Lymphocytes Absolute Auto 1.09 K/mm3 (0.9-3.2); Lymphocytes Percent Auto 15.2 % (18.3-44.2); Mean Corpuscular HGB Conc 34.9 g/dl (32-36); Mean Corpuscular Hemoglobin 29.6 pg (26-34); Mean Corpuscular Volume 84.9 fl (80-100); Mean Platelet Volume 9.1 fl (7.4-10.4); Monocytes Absolute Auto 0.5 K/mm3 (0.1-0.6); Monocytes Percent Auto 7.6 % (2.6-8.5); Neutrophils Absolute Auto 5.3 K/mm3 (1.3-6.7); Neutrophils Percent Auto 74.4 % (45.5-73.1); Platelet Count Result 392 k/mm3 (150-375); Red Blood Count 4.69 M/mm3 (4.2-5.4); White Blood Count 7.2 K/mm3 (4.5-10.0)
[2020-11-10 06:07] LABS: Alanine Aminotransferase 34 U/L (4-35); Albumin Level 2.9 g/dL (3.5-5.1); Alkaline Phosphatase 87 U/L (38-126); Anion Gap 2 mmol/L (8-16); Aspartate Amino Transferase 19 U/L (14-36); Bilirubin,Total 0.4 mg/dL (0.2-1.3); Blood Urea Nitrogen 16 mg/dL (7-17); CRP 1.9 mg/dL (<1.0); Calcium 8.6 mg/dL (8.4-10.2); Carbon Dioxide 32 mmol/L (22-30); Chloride 101 mmol/L (98-107); Estimated CRCL calculation 89 ml/min; Estimated Glomerular Filt Rate > 60; Glucose 101 mg/dL (65-105); Potassium 3.9 mmol/L (3.4-5.0); Sodium 135 mmol/L (137-145)
[2020-11-10] MEDS: ZINC SULFATE 220 MG CAPSULE PO (09:44)
[2020-11-10] MEDS: REMDESIVIR 100 MG/NS 250 ML 100 MG/250 ML BAG 250 MG IVPB (09:44)
[2020-11-10] MEDS: ENOXAPARIN 40 MG/0.4 ML SYRINGE SUB-Q ×2 (09:44→20:01)
[2020-11-10] MEDS: CHOLECALCIFEROL 1,000 UNITS TABLET 1000 UNITS PO (09:44)
[2020-11-10] MEDS: DEXAMETHASONE SOD PHOS INJ 4 MG/ML VIAL 6 MG IV PUSH (09:45)
[2020-11-10] MEDS: ASCORBIC ACID 500 MG TABLET PO (09:45)
--- NOTE | 2020-11-10 16:35 | PM.IMPN ---
Progress Note: A&P Assessment and Plan (1) Person under investigation for COVID-19: Code(s): Z20.822 - Contact with and (suspected) exposure to COVID-19 Status: Acute Assessment and Plan: 11/09 patient was positive for COVID being treated with dexamethasone 05/14 started Remdesivir on 11/03 and completed 5 days course of 5/5 on 11/07 and started second 5 days course of remdesivir on 11/08 2 continued vitamin D and C, Zinc, discussed with the patient regarding convalescent plasma, and again on 11/07 patient refused it. patient LFT were elevated but not close to 10x the normal, acute hepatitis panel was negative and liver US was normal, today patient LFT are trending down, will monitor liver function daily, patient was refusing Lovenox on 11/03, I explained to the patient COVID patients are at high risk for blood clots. starting 11/03 she is taking Lovenox, on 11/08 patient appeared more short of breath and requiring high-flow oxygen 7 L, her lung sounds more a congested and chest x-ray showed congestion too. Pt is feeling better today. encouraged prone positioning, pt did well weaned off oxygen now, hopeful discharge tomorrow. (2) Hypokalemia: Code(s): E87.6 - Hypokalemia Status: Resolved Assessment and Plan: will replace as necessary (3) Elevated d-dimer: Code(s): R79.89 - Other specified abnormal findings of blood chemistry Status: Acute Assessment and Plan: CTA pulmonary and ordered venous Dopplers. Plan is above (4) Hypoxia: Code(s): R09.02 - Hypoxemia Status: Resolved Assessment and Plan: (5) Pneumonia: Code(s): J18.9 - Pneumonia, unspecified organism Status: Acute Assessment and Plan: The patient was started on Levaquin and inhalers. Subjective Date/time seen: 11/10/20 16:35 Interval history: Interval history: patient was positive for COVID being treated with dexamethasone 05/14 started Remdesivir on 11/03 and completed 5 days course of 5/5 on 11/07 and started second 5 days course of remdesivir on 11/08 2 continued vitamin D and C, Zinc, discussed with the patient regarding convalescent plasma, and again on 11/07 patient refused it. patient LFT were elevated but not close to 10x the normal, acute hepatitis panel was negative and liver US was normal, today patient LFT are trending down, will monitor liver function daily, patient was refusing Lovenox on 11/03, I explained to the patient COVID patients are at high risk for blood clots. starting 11/03 she is taking Lovenox, on 11/08 patient appeared more short of breath and requiring high-flow oxygen 6 L. Pt feels better encouraged prone positioning pt is weaned down to nasal canulae, pt to do walk study tomorrow ands hopefully be discharged, pt has been in hospital until last Monday wants to go home. Review of Systems Review of Systems: All systems reviewed & are unremarkable except as noted in HPI and below Exam Narrative: Exam Narrative: Patient is comfortable,no cough or sob talking sentences LUNGS: Normal respiratory effort ABD: Not distended Lower extremities: no edema SKIN: nonjaundiced Neuro: grossly intact normal speech. Objective Data Vital Signs Vital Signs: Vital Signs - 24 hr 11/09/20 20:00 11/09/20 22:51 11/09/20 23:01 Temperature 36.5 C Pulse Rate 133 H 101 H 100 Respiratory Rate 18 20 20 Blood Pressure 112/68 Pulse Oximetry 95 95 11/09/20 23:43 11/10/20 00:00 11/10/20 03:57 Temperature 36.6 C 36.6 C Pulse Rate 86 96 74 Respiratory Rate 17 18 Blood Pressure 102/63 108/72 Pulse Oximetry 95 96 11/10/20 04:00 11/10/20 04:19 11/10/20 04:29 Temperature Pulse Rate 76 78 80 Respiratory Rate 20 20 Blood Pressure Pulse Oximetry 11/10/20 08:00 11/10/20 08:57 11/10/20 09:07 Temperature 36.6 C Pulse Rate 74 88 85 Respiratory Rate 20 18 18 Blood Pressure 109/63 Pulse Oximetry 92 96 03/0
[2020-11-10] MEDS: SODIUM CHLORIDE NASAL GEL 14.1 GM 1 APPLIC NASAL (22:34)
[2020-11-11] VITALS (19 sets, daily range): BP systolic 108–115; BP diastolic 59–66; PULSE 76–144; RESP 18–20; TEMP 36.1–36.4; O2SAT 82–95
[2020-11-11] MEDS: IPRATROPIUM BR 0.02% INH SOLN 0.5 MG/2.5 ML VIAL INHALATION ×5 (00:13→16:33)
[2020-11-11] MEDS: ALBUTEROL SULFATE NEB 2.5 MG/0.5 ML INH INHALATION ×5 (00:13→16:33)
[2020-11-11 05:52] LABS: Basophils Percent Auto 0.3 % (0.2-1.2); Hematocrit 39.9 % (37.0-47.0); Hemoglobin 13.7 g/dL (12.0-15.0); Immature Granulocyte Absolute 0.22 K/mm3 (0.00-0.031); Lymphocytes Absolute Auto 1.32 K/mm3 (0.9-3.2); Mean Corpuscular HGB Conc 34.3 g/dl (32-36); Mean Corpuscular Hemoglobin 29.2 pg (26-34); Mean Corpuscular Volume 85.1 fl (80-100); Mean Platelet Volume 9.2 fl (7.4-10.4); Monocytes Absolute Auto 0.6 K/mm3 (0.1-0.6); Monocytes Percent Auto 8.2 % (2.6-8.5); Neutrophils Absolute Auto 5.2 K/mm3 (1.3-6.7); Neutrophils Percent Auto 70.5 % (45.5-73.1); Platelet Count Result 382 k/mm3 (150-375); Red Blood Count 4.69 M/mm3 (4.2-5.4); Red Cell Distribution Width 12.2 % (11.5-14.5); White Blood Count 7.3 K/mm3 (4.5-10.0)
[2020-11-11 06:04] LABS: Alanine Aminotransferase 29 U/L (4-35); Albumin Level 2.8 g/dL (3.5-5.1); Alkaline Phosphatase 88 U/L (38-126); Anion Gap 1 mmol/L (8-16); Aspartate Amino Transferase 18 U/L (14-36); Bilirubin,Total 0.3 mg/dL (0.2-1.3); Blood Urea Nitrogen 17 mg/dL (7-17); CRP 1.4 mg/dL (<1.0); Calcium 8.5 mg/dL (8.4-10.2); Carbon Dioxide 32 mmol/L (22-30); Chloride 101 mmol/L (98-107); Estimated CRCL calculation 89 ml/min; Estimated Glomerular Filt Rate > 60; Glucose 101 mg/dL (65-105); Potassium 3.8 mmol/L (3.4-5.0); Sodium 134 mmol/L (137-145)
[2020-11-11] MEDS: guaiFENesin 12 HR 600 MG TABCR PO (08:49)
[2020-11-11] MEDS: ENOXAPARIN 40 MG/0.4 ML SYRINGE SUB-Q (08:49)
[2020-11-11] MEDS: ZINC SULFATE 220 MG CAPSULE PO (08:49)
[2020-11-11] MEDS: CHOLECALCIFEROL 1,000 UNITS TABLET 1000 UNITS PO (08:49)
[2020-11-11] MEDS: ASCORBIC ACID 500 MG TABLET PO (08:49)
[2020-11-11] MEDS: REMDESIVIR 100 MG/NS 250 ML 100 MG/250 ML BAG 250 MG IVPB (12:34)
--- NOTE | 2020-11-11 14:17 | HOMEO2EVAL ---
Home Oxygen Evaluation RC: Home Oxygen (O2) Evaluation Start: 11/11/20 12:53 Freq: ONCE Status: Active Protocol: RPE Activity Type Activity Date Activity User E-Sign Co-Sign Detail Recorded Client Recorded Date Recorded By Document 11/11/20 13:20 [email or web address] [email or web address] 11/11/20 14:17 DJO Document 11/11/20 13:20 [email or web address] [email or web address] 11/11/20 14:17 DJO Document 11/11/20 13:25 [email or web address] [email or web address] 11/11/20 14:17 DJO Document 11/11/20 13:30 [email or web address] [email or web address] 11/11/20 14:17 DJO Document 11/11/20 13:35 [email or web address] [email or web address] 11/11/20 14:17 DJO Document 11/11/20 13:40 [email or web address] [email or web address] 11/11/20 14:17 DJO Document 11/11/20 13:45 [email or web address] [email or web address] 11/11/20 14:17 DJO Document 11/11/20 14:15 [email or web address] [email or web address] 11/11/20 14:17 DJO 11/11/20 11/11/20 11/11/20 13:20 13:20 13:25 Home O2 Evaluation Test Phase Resting Exercise Exercise Oxygen Delivery Room Air Room Air Nasal Cannula Oxygen Flow Rate (L/min) 1 Pulse Oximetry (90-100 %) 89 L 82 L 83 L Pulse Rate (60-100 beats/min) 114 H 134 H 137 H Activity Tolerance Rating of Perceived Dyspnea (PD) Treatment Charges O2 Evaluation - Inpatient 11/11/20 11/11/20 11/11/20 13:30 13:35 13:40 Home O2 Evaluation Test Phase Exercise Exercise Exercise Oxygen Delivery Nasal Cannula Nasal Cannula Nasal Cannula Oxygen Flow Rate (L/min) 2 3 4 Pulse Oximetry (90-100 %) 84 L 85 L 87 L Pulse Rate (60-100 beats/min) 139 H 142 H 142 H Activity Tolerance Rating of Perceived Dyspnea (PD) Treatment Charges 11/11/20 11/11/20 13:45 14:15 Home O2 Evaluation Test Phase Exercise Resting Oxygen Delivery Nasal Cannula Oxygen Flow Rate (L/min) 5 Pulse Oximetry (90-100 %) 90 89 L Pulse Rate (60-100 beats/min) 144 H 118 H Activity Tolerance Good Rating of Perceived Dyspnea (PD) +3 Moderate Difficulty, But Can Continue Treatment Charges
--- NOTE | 2020-11-11 14:36 | PCRCNOTE ---
HOME O2 EVAL COMPLETE, 5 LITERS WITH ACTIVITY. O2 SET UP WITH [facility] PHONE NUMBER [phone]. TANK HAS BEEN DELIVERED TO PT'S ROOM FOR DISCHARGE.
--- NOTE | 2020-11-24 08:31 | PM.DS ---
DS: Admitting Diagnosis Admitting Diagnosis Admitting Diagnosis: Dyspnea DS: Discharge Diagnosis Discharge Diagnosis (1) Person under investigation for COVID-19: Code(s): Z20.822 - Contact with and (suspected) exposure to COVID-19 Status: Acute Assessment and Plan: Interval history: 11/09 patient was positive for COVID being treated with dexamethasone /10 started Remdesivir on 11/03 and completed 5 days course of 5/5 on 11/07 and started second 5 days course of remdesivir on 11/08 10/09 continued vitamin D and C, Zinc, discussed with the patient regarding convalescent plasma, and again on 11/07 patient refused it. patient LFT were elevated but not close to 10x the normal, acute hepatitis panel was negative and liver US was normal, today patient LFT are trending down, will monitor liver function daily, patient was refusing Lovenox on 11/03, I explained to the patient COVID patients are at high risk for blood clots. starting 11/03 she is taking Lovenox, on 11/08 patient appeared more short of breath and requiring high-flow oxygen 7 L. Cxr still showing congestion. 11/11 Pt is feeling better today. encouraged prone positioning, pt did well weaned off oxygen now, can be discharged today. (2) Hypokalemia: Code(s): E87.6 - Hypokalemia Status: Resolved Assessment and Plan: will replace as necessary (3) Elevated d-dimer: Code(s): R79.89 - Other specified abnormal findings of blood chemistry Status: Acute Assessment and Plan: CTA pulmonary and ordered venous Dopplers. Plan is above CTA - shows 1. Progression of extensive patchy bilateral airspace disease, compatible with pneumonia. 2: Suboptimal examination for pulmonary embolism. No large central pulmonary embolus. 3: Mediastinal lymphadenopathy, likely reactive. Venous doppler is negative (4) Hypoxia: Code(s): R09.02 - Hypoxemia Status: Resolved Assessment and Plan: After treatment with Levaquin and inhalers. (5) Pneumonia: Code(s): J18.9 - Pneumonia, unspecified organism Status: Acute Assessment and Plan: The patient was started on Levaquin and inhalers. DS: Summary Hospital Course Hospital Course: Interval history: patient was positive for COVID being treated with dexamethasone /10 started Remdesivir on 11/03 and completed 5 days course of 5/5 on 11/07 and started second 5 days course of remdesivir on 11/08 2/ continued vitamin D and C, Zinc, discussed with the patient regarding convalescent plasma, and again on 11/07 patient refused it. patient LFT were elevated but not close to 10x the normal, acute hepatitis panel was negative and liver US was normal, today patient LFT are trending down, will monitor liver function daily, patient was refusing Lovenox on 11/03, I explained to the patient COVID patients are at high risk for blood clots. starting 11/03 she is taking Lovenox, on 11/08 patient appeared more short of breath and requiring high-flow oxygen 6 L. Pt feels better encouraged prone positioning pt is weaned down to nasal canulae, pt to do walk study tomorrow ands hopefully be discharged, pt has been in hospital until last Monday wants to go home. Pt discharged with oxygen at home. Time Spent with Patient Time attestation: Total time spent providing and/or coordinating discharge services: 40 minutes on day of discharge Exam Narrative: Exam Narrative: Patient is comfortable,no cough or sob talking sentences LUNGS: Normal respiratory effort ABD: Not distended Lower extremities: no edema SKIN: nonjaundiced Neuro: grossly intact normal speech. Discharge Plan Discharge Attending physician on discharge: Edith Dior Consulting providers: Ondina Mcelroy ; Javon Gilbert ; Luis M Roberts ; Estevan Spears ; Bao Evans ; Flaquito Lock V. Discharging Clinician: Edith Dior Anticipated Discharge Date/Time: 11/11/20 16:50 Patient Disposition: Ho
== END 2020-11-11 16:48 | disposition home or self-care (01) | DRG 137 ==
LOC: ANHED 20:34 → ANH3MEDSUR 23:40
PROVIDERS: Family Medicine; Admitting Provider Family Medicine; Emergency Provider Emergency Medicine; PCP Internal Medicine; Visit Provider Family Medicine
DX: U07.1 COVID-19 (principal); J12.82 Pneumonia due to coronavirus disease 2019; R09.02 Hypoxemia; Z88.0 Allergy status to penicillin; E87.6 Hypokalemia; R79.89 Other specified abnormal findings of blood chemistry
CPT/HCPCS: 36415; 71045; 71275; 76705; 80053; 80074; 83605; 83735; 83880; 85025; 85055; 85380; 86140; 93005; 93970; 94618; 94640; 96361; 96374; 97110; 97116; 97161; 97530; 99285; A9270; C9803; J1100; J1650; J1940; J1956; J7030; Q9967; U0003; U0005

== ENCOUNTER 2020-11-15 12:51 | Emergency (ER) | payer OTHER, SELFPAY ==
--- NOTE | ~2020-11-15 | CT_ITS ---
EXAMINATION: CTA chest PE protocol DATE: 11/15/2020 15:03 CDT INDICATION: Hypoxia TECHNIQUE: Computed tomographic angiography (CTA) of the chest was performed with 100 mL Omnipaque-35 0 intravenous contrast. The dose-length product was 215.54 mGy-cm. Maximum intensity projection 3D-re constructions of the aorta and other arteries were constructed by the technologist on a separate work station. Automated exposure control and iterative reconstruction technique were employed. COMPARISON: Comparison to multiple prior studies sequentially, with oldest reviewed study dated 10/31. . FINDINGS: Study is suboptimal for evaluation of pulmonary embolism. No large central pulmonary emboli sm is seen in the main pulmonary arteries. Heart size is normal. No evidence for aortic aneurysm or d issection. Subtle low-density lesions in the right hepatic lobe, likely cysts. Mild mediastinal lymph adenopathy, for instance AP window lymph node measures 12.5 mm. There has been progression of extensi ve bilateral airspace consolidation involving all lobes, consistent with pneumonia. No endobronchial lesions. IMPRESSION: 1. Progression of extensive patchy bilateral airspace disease, compatible with pneumonia. 2: Suboptimal examination for pulmonary embolism. No large central pulmonary embolus. 3: Mediastinal lymphadenopathy, likely reactive. Reviewed, dictated and finalized at location A. IMPRESSION: 1. Progression of extensive patchy bilateral airspace disease, compatible with pneumonia. 2: Suboptimal examination for pulmonary embolism. No large central pulmonary em bolus. 3: Mediastinal lymphadenopathy, likely reactive.
--- NOTE | 2020-11-15 12:55 | ED.SOB ---
HPI - SOB/Dyspnea General Chief Complaint: Shortness of Breath/Dyspnea Stated Complaint: COVID +, PNX History of Present Illness HPI Narrative: 59 yo female w/ h/o COVID pneumonia presents to the ED for SOB. She has been sick for more than 3 weeks. Presented to the hospital on 10/31 with COVID pneumonia and was in the hospital until 11/11. At that point she was discharged home with supplemental O2, levaquin and zinc. Today she was feeling more SOB. Here pulse ox was dropping even on 4 liters and she was significantly tachycardic. No chest pain, fever, light headedness. Related Data Allergies Allergy/AdvReac Type Severity Reaction Status Date / Time chlordiazepoxide Allergy Unknown Fever Verified 11/01/20 01:00 codeine Allergy Unknown Fever Verified 11/01/20 01:00 erythromycin base Allergy Unknown Fever Verified 11/01/20 01:00 metronidazole Allergy Unknown Fever Verified 11/01/20 01:00 Penicillins Allergy Unknown Fever Verified 11/01/20 01:00 Review of Systems Review of Systems: All systems reviewed & are unremarkable except as noted in HPI and below Constitutional: Constitutional: Reports fatigue, Denies fever(s) and Reports weakness Eyes: Eyes: Reports no additional eye complaints ENT: Reports system reviewed and no additional complaints, except as documented Cardiovascular: Cardiovascular: Denies chest pain Respiratory: Respiratory: Reports chest congestion, Reports cough and Reports dyspnea Gastrointestinal: Gastrointestinal: Denies abdominal pain, Denies nausea and Denies vomiting Genitourinary: Genitourinary: Denies dysuria Musculoskeletal: Musculoskeletal: Reports myalgias Neurologic: Denies dizziness, Denies syncope and Reports weakness PMF Past Medical History Medical History Healthy female adult Pneumonia due to COVID-19 virus Surgical History Surgical History History of cholecystectomy Family History Family History Mother Hypertension COPD (chronic obstructive pulmonary disease) Father Family history of hearing loss Malignant neoplasm of prostate Other Diabetes mellitus Family history of cardiovascular disease Social History Social History Social History: 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 The patient desires to be a full code. She has 4 children. She is a lifelong nonsmoker. She does not use any marijuana alcohol or illicit drugs. Smoking status: Never smoker Second hand tobacco smoke exposure: No Alcohol intake: current Drinks per week: 1 Substance use: never Substance use type: does not use Spiritual care concerns: No Exam Const: General: no acute distress, alert and ill appearing Orientation/consciousness: patient oriented x3 HENMT: Head: normal to inspection Neck: Neck: normal visual inspection Resp: Effort & Inspection: tachypneic Auscultation: crackles diffuse Cardio: Rate: tachycardic Rhythm: regular rhythm GI: GI Palp: Yes Soft to palpation and No Tenderness to palpation present (GI) Skin: General skin exam: normal color Neuro: General: patient oriented x3, moves all extremities, no focal motor deficits and CN's II-XI intact bilaterally Speech: normal speech Extrem: General: normal to inspection and no edema Other: No calf tenderness Course Vital Signs Vital signs: Vital Signs Temperature 36.6 C 11/15/20 12:58 Pulse Rate 132 H 11/15/20 12:58 Respiratory Rate 18 11/15/20 12:58 Blood Pressure 127/78 11/15/20 12:58 Pulse Oximetry 94 11/15/20 12:58 Temperature 36.6 C 11/15/20 12:58 Pulse Rate 123 H 11/15/20 16:12 Respiratory Rate 31 H 11/15/20 16:12 Blood Pressure 112/68 11/15/20 16:12 Pulse Oximetry 95
[2020-11-15 12:58] VITALS: BP 127/78; PULSE 132; RESP 18; TEMP 36.6; O2SAT 94
[2020-11-15 13:33] LABS: Basophils Percent Auto 0.2 % (0.2-1.2); Eosinophils Percent Auto 0.2 % (0-4.4); Hematocrit 43.7 % (37.0-47.0); Hemoglobin 15.2 g/dL (12.0-15.0); Lymphocytes Absolute Auto 1.01 K/mm3 (0.9-3.2); Lymphocytes Percent Auto 10.2 % (18.3-44.2); Mean Corpuscular HGB Conc 34.8 g/dl (32-36); Mean Corpuscular Hemoglobin 30.1 pg (26-34); Mean Corpuscular Volume 86.5 fl (80-100); Mean Platelet Volume 9.9 fl (7.4-10.4); Monocytes Absolute Auto 0.8 K/mm3 (0.1-0.6); Monocytes Percent Auto 7.8 % (2.6-8.5); Neutrophils Percent Auto 80.6 % (45.5-73.1); Platelet Count Result 351 k/mm3 (150-375); Red Blood Count 5.05 M/mm3 (4.2-5.4); Red Cell Distribution Width 12.6 % (11.5-14.5); White Blood Count 9.9 K/mm3 (4.5-10.0)
[2020-11-15 13:45] LABS: Lactic Acid Reflex 1.7 mmol/L (0.7-2.1)
[2020-11-15 13:47] LABS: Alanine Aminotransferase 29 U/L (4-35); Albumin Level 3.4 g/dL (3.5-5.1); Alkaline Phosphatase 119 U/L (38-126); Anion Gap 2 mmol/L (8-16); Aspartate Amino Transferase 32 U/L (14-36); Bilirubin,Total 0.6 mg/dL (0.2-1.3); Blood Urea Nitrogen 9 mg/dL (7-17); CRP 5.5 mg/dL (<1.0); Calcium 8.5 mg/dL (8.4-10.2); Carbon Dioxide 32 mmol/L (22-30); Chloride 100 mmol/L (98-107); Estimated CRCL calculation 69 ml/min; Estimated Glomerular Filt Rate > 60; Glucose 104 mg/dL (65-105); Potassium 3.6 mmol/L (3.4-5.0); Sodium 134 mmol/L (137-145)
[2020-11-15 13:48] LABS: INR 0.9; Prothrombin Time 13.2 Seconds (11.1-14.7)
[2020-11-15 13:49] LABS: Partial Thromboplastin Time 27.6 SECONDS (22.3-36.8)
[2020-11-15 13:56] LABS: NT Pro B Type Natriuretic Pept 27 PG/ML (5-100); Troponin I < 0.012 ng/mL (0.000-0.034)
[2020-11-15 15:17] VITALS: BP 103/70; PULSE 110; RESP 22; O2SAT 95
[2020-11-15 16:12] VITALS: BP 112/68; PULSE 123; RESP 31; O2SAT 95
== END 2020-11-15 16:13 | disposition home or self-care (01) ==
PROVIDERS: Emergency Provider Emergency Medicine; PCP Internal Medicine
DX: U07.1 COVID-19 (principal); J12.82 Pneumonia due to coronavirus disease 2019
CPT/HCPCS: 36415; 71275; 80053; 83605; 83880; 84484; 85025; 85610; 85730; 86140; 87040; 99284; Q9967

== ENCOUNTER 2020-11-27 11:47 | Emergency (ER) | payer SELFPAY ==
[2020-11-27] VITALS (11 sets, daily range): BP systolic 112–129; BP diastolic 76–94; PULSE 101–119; RESP 14–24; TEMP 36.9; O2SAT 93–98
--- NOTE | ~2020-11-27 | XR_ITS ---
XR chest 2V 11/27/2020 12:16 Indication: Left-sided chest pain Procedure: 2 view chest Comparison: Comparison to multiple prior studies sequentially, with oldest reviewed study dated 06/05. Findings: Heart size normal. Patchy bilateral airspace disease, compatible with pneumonia. Findings h ave improved since 11/08/2020. No significant effusion. No acute osseous abnormality. There are carmella cystectomy clips. Impression: 1: Improving patchy bilateral pneumonia compared with 11/08/2020. Reviewed, dictated and finalized at location B. Impression: 1: Improving patchy bilateral pneumonia compared with 11/08/2020.
--- NOTE | 2020-11-27 11:49 | ECG_ITS ---
Measurements Intervals [place] Rate: 114 P: 21 OR: 128 QRS: -11 QRSD: 72 T: 3 QT: 308 QTc: 426 Interpretive Statements SINUS TACHYCARDIA INFERIOR INFARCT, AGE INDETERMINATE BASELINE ARTIFACT- I, III, AVL, AVF ABNORMAL ECG Electronically Signed On 11-27-2020 12:19:47 CDT by Estevan Spears D.O.
--- NOTE | 2020-11-27 12:14 | ED.CHESTPAIN ---
HPI - Chest Pain General Chief Complaint: Chest Pain Stated Complaint: chest pain worse with inspiration Time Seen by Provider: 11/27/20 12:11 Source: patient and family Mode of arrival: ambulatory Limitations: no limitations History of Present Illness HPI narrative: Patient is 59 years old white female presents with intermittent sharp stabbing pain left lower ribs laterally started yesterday, worse with breathing. History of Covid pneumonia 2 weeks ago, with intermittent to persistent coughing. Patient was hospitalized in our hospital for lower extremity 10 days prior to his discharge. Symptoms of the patient denies any fever, chills any nausea, vomiting. Related Data Allergies Allergy/AdvReac Type Severity Reaction Status Date / Time chlordiazepoxide Allergy Unknown Fever Verified 11/01/20 01:00 codeine Allergy Unknown Fever Verified 11/01/20 01:00 erythromycin base Allergy Unknown Fever Verified 11/01/20 01:00 metronidazole Allergy Unknown Fever Verified 11/01/20 01:00 Penicillins Allergy Unknown Fever Verified 11/01/20 01:00 Review of Systems Review of Systems: Narrative: CONSTITUTIONAL: Denies fever, chills, or sweats. EYES: Denies visual changes, redness, or discharge. ENT: Denies rhinorrhea, congestion, sore throat, or otalgia. CARDIOVASCULAR: Denies chest pain, palpitations, or edema. RESPIRATORY: Denies cough or dyspnea. GASTROINTESTINAL: Denies abdominal pain, nausea, vomiting, or diarrhea. GENITOURINARY: Denies dysuria or hematuria. SKIN: Denies rash or itching. MUSCULOSKELETAL: Denies back pain, joint pain, or myalgia. NEUROLOGIC: Denies headache, numbness, or weakness. PSYCHIATRIC: Denies anxiety or depression. 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 The patient desires to be a full code. She has 4 children. She is a lifelong nonsmoker. She does not use any marijuana alcohol or illicit drugs. Smoking status: Never smoker Second hand tobacco smoke exposure: No Alcohol intake: current Drinks per week: 1 Substance use: never Substance use type: does not use Spiritual care concerns: No Exam Narrative: Exam Narrative: General appearance: Well-developed, well-nourished Skin: Normal color Head: Normocephalic, nontraumatic Eyes: Clear conjunctiva ENT: Oropharynx normal, ears normal, nose normal Neck: Supple, nontender Chest and respiratory: Airway patent, no respiratory distress, no accessory muscle use Heart: Regular rate/rhythm Abdomen: Soft, nontender, no organomegaly, quiet bowel sounds Vascular: Normal peripheral pulses, normal capillary refill. Musculoskeletal: Normal range of motion, nontender back. Mild tenderness left lower ribs medially, no bruises, no swelling, no rash Neurologic: Alert and oriented ?3, DOUBLE CUT OFF SAW OPERATOR is normal as tested, no gross motor deficit Course Course Emergency Course: Stable Vital Signs Vital signs: Vital Signs Temperature 36.9 C 11/27/20 11:56 Pulse R
[2020-11-27 12:22] LABS: Basophils Absolute Auto 0.1 K/mm3 (0.0-0.1); Basophils Percent Auto 1.1 % (0.2-1.2); Eosinophils Absolute Auto 0.1 K/mm3 (0-0.3); Eosinophils Percent Auto 1.9 % (0-4.4); Hematocrit 41.5 % (37.0-47.0); Hemoglobin 14.4 g/dL (12.0-15.0); Immature Granulocyte Absolute 0.05 K/mm3 (0.00-0.031); Immature Granulocyte Percent A 0.8 % (0-0.5); Lymphocytes Absolute Auto 1.56 K/mm3 (0.9-3.2); Lymphocytes Percent Auto 24.4 % (18.3-44.2); Mean Corpuscular HGB Conc 34.7 g/dl (32-36); Mean Corpuscular Hemoglobin 29.9 pg (26-34); Mean Corpuscular Volume 86.3 fl (80-100); Mean Platelet Volume 9.1 fl (7.4-10.4); Monocytes Absolute Auto 0.7 K/mm3 (0.1-0.6); Monocytes Percent Auto 10.6 % (2.6-8.5); Neutrophils Absolute Auto 3.9 K/mm3 (1.3-6.7); Neutrophils Percent Auto 61.2 % (45.5-73.1); Platelet Count Result 483 k/mm3 (150-375); Red Blood Count 4.81 M/mm3 (4.2-5.4); Red Cell Distribution Width 13.2 % (11.5-14.5); White Blood Count 6.4 K/mm3 (4.5-10.0)
[2020-11-27 12:38] LABS: Alveolar/Arterial O2 Gradient 47.2 mmHg; Device ROOM AIR; Fractional Inspired Oxygen 21 %; HCO3 ABG 23.9 mEq/l (22.0-26.0); Modified Allen's Test Pass; Oxygen Content ABG 18.8 %vol (16.0-22.0); Oxygen Saturation ABG 93.6 % (95.0-100.0); Oxyhemoglobin 90.4 % THb (90.0-100.0); PCO2 ABG 33.2 mmHg (35.0-45.0); PO2 ABG 62.8 mmHg (80.0-100.0); PO2 FiO2 Ratio Arterial Blood 2.99 %; Site Drawn LEFT RADIAL; Total Hemoglobin 14.8 g/dL (12.0-18.0); pH ABG 7.475 (7.350-7.450)
[2020-11-27 13:25] LABS: Anion Gap 2 mmol/L (8-16); Blood Urea Nitrogen 8 mg/dL (7-17); Calcium 8.9 mg/dL (8.4-10.2); Carbon Dioxide 32 mmol/L (22-30); Chloride 105 mmol/L (98-107); D Dimer 0.95 ug/mL (<0.48); Estimated CRCL calculation 79 ml/min; Estimated Glomerular Filt Rate > 60; Glucose 86 mg/dL (65-105); Potassium 4.3 mmol/L (3.4-5.0); Sodium 139 mmol/L (137-145)
[2020-11-27 13:31] LABS: Prothrombin Time 13.8 Seconds (11.1-14.7)
[2020-11-27 13:35] LABS: Troponin I < 0.012 ng/mL (0.000-0.034)
== END 2020-11-27 14:07 | disposition home or self-care (01) ==
PROVIDERS: Emergency Medicine; Emergency Provider Emergency Medicine; PCP Internal Medicine
DX: R09.1 Pleurisy (principal); R05 Cough; S29.011A Strain of muscle and tendon of front wall of thorax, initial encounter; Z86.16 Personal history of COVID-19; R00.0 Tachycardia, unspecified; R94.31 Abnormal electrocardiogram [ECG] [EKG]; X58.XXXA Exposure to other specified factors, initial encounter
CPT/HCPCS: 36415; 36600; 71046; 80048; 82805; 84484; 85025; 85380; 85610; 85730; 93005; 99284

== ENCOUNTER 2023-02-27 22:12 | Emergency (ER) | payer SELFPAY ==
--- NOTE | ~2023-02-27 | XR_ITS ---
Right Shoulder Technique: AP and axillary views were obtained. Clinical History: Pain Findings: No fracture or dislocation is seen. Osseous alignment is anatomic. The glenohumeral and acr omioclavicular joint spaces are preserved. There is calcification at the distal rotator cuff insertio n, compatible with calcific tendinitis, most likely of the supraspinatus tendon. Impression: Calcific tendinitis, most likely of the supraspinatus tendon. Reviewed, dictated and finalized at location M. Impression: Calcific tendinitis, most likely of the supraspinatus tendon.
[2023-02-27 22:19] VITALS: BP 147/80; PULSE 108; RESP 16; TEMP 36.6; O2SAT 100
--- NOTE | 2023-02-27 23:23 | ED.EXTPRO ---
HPI - Extremity Problem General Chief complaint: Extremity Problem,Nontraumatic <Marce Lynn PA-C - Last Filed: 02/28/23 00:42> Stated complaint: R shoulder pain <FATUMA Suarez Last Filed: 02/28/23 00:42> Time Seen by Provider: 02/27/23 23:09 <FATUMA Suarez Last Filed: 02/28/23 00:42> History of Present Illness HPI Narrative: 62 y/o F reports for evaluation of R shoulder pain that started this morning when she woke up. Pt states she woke up with a dull ache in her R shoulder that has progressed to a sharp, shooting pain to her upper extremity for the past 3 hours, and is extending into her clavicle. The pain is worse with palpation and movement of her shoulder. She denies trauma or injury to her shoulder. Denies chest pain, shortness of breath, paraesthesias, neck pain, back pain, fever. <FATUMA Suarez Last Filed: 02/28/23 00:42> Related Data Allergies/Adverse reactions: Allergies Allergy/AdvReac Type Severity Reaction Status Date / Time chlordiazepoxide Allergy Unknown Fever Verified 02/27/23 22:40 codeine Allergy Unknown Fever Verified 02/27/23 22:40 erythromycin base Allergy Unknown Fever Verified 02/27/23 22:40 metronidazole Allergy Unknown Fever Verified 02/27/23 22:40 Penicillins Allergy Unknown Fever Verified 02/27/23 22:40 <FATUMA Suarez Last Filed: 02/28/23 00:42> Review of Systems Review of Systems: CONSTITUTIONAL: Denies fever, chills EYES: Denies visual changes, redness, or discharge. ENT: Denies rhinorrhea, congestion, sore throat, or otalgia. CARDIOVASCULAR: Denies chest pain, palpitations, or edema. RESPIRATORY: Denies cough or dyspnea. GASTROINTESTINAL: Denies abdominal pain, nausea, vomiting, or diarrhea. GENITOURINARY: Denies dysuria or hematuria. SKIN: Denies rash or itching. MUSCULOSKELETAL: See HPI NEUROLOGIC: Denies headache, numbness, dizziness, or weakness. PSYCHIATRIC: Denies anxiety or depression. <Marce Lynn PA-C - Last Filed: 02/28/23 00:42> [facility] Past Medical History Medical History: Medical History Healthy female adult Pneumonia due to COVID-19 virus <Marce Lynn PA-C - Last Filed: 02/28/23 00:42> Surgical History Surgical History: Surgical History History of cholecystectomy <Marce Lynn PA-C - Last Filed: 02/28/23 00:42> Family History Family History: Family History Mother Hypertension COPD (chronic obstructive pulmonary disease) Father Family history of hearing loss Malignant neoplasm of prostate Other Diabetes mellitus Family history of cardiovascular disease <Marce Lynn PA-C - Last Filed: 02/28/23 00:42> Social History Social History: Social History Social History: 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 The patient desires to be a full code. She has 4 children. She is a lifelong nonsmoker. She does not use any marijuana alcohol or illicit drugs. Smoking status: Never smoker Second hand tobacco smoke exposure: No Alcohol intake: current Drinks per week: 1 Substance use: never Substance use type: does not use Spiritual care concerns: No <Marce Lynn PA-C - Last Filed: 02/28/23 00:42> Exam Narrative: GENERAL: Well-appearing, in no acute distress. HEAD: Normocephalic EYES: PERRLA ENT: Nares clear. Mucous membranes moist. Oropharynx without tonsillar hypertrophy exudate or other lesions. NECK: Supple. No midline cervical tenderness, step offs or deformities. Full ROM of neck. CHEST: No respiratory distress. Clear to auscultation, no adventitious breath sounds. HEART: Regular rate and rhythm. No murmur heard. N
[2023-02-27] MEDS: KETOROLAC 30 MG/ML VIAL (*BKC) IM (23:50)
[2023-02-27] MEDS: ACETAMINOPHEN 500 MG TABLET 1000 MG PO (23:50)
== END 2023-02-28 00:54 | disposition home or self-care (01) ==
PROVIDERS: Emergency Provider Physician Assistant; PCP Internal Medicine
DX: M75.81 Other shoulder lesions, right shoulder (principal)
CPT/HCPCS: 73030; 96372; 99283; A9270; J1885